=== PATIENT | male | born 1940 | race Two or more races ===

== ENCOUNTER 2018-07-23 22:15 | Inpatient (IN) | payer MEDICARE, MEDICAID ==
--- NOTE | 2018-07-23 22:32 | ED Physician Chart ---
ED Chief Complaint/HPI - Patient Information Date Seen:: 07/23/18 Time Seen:: 22:15 Chief Complaint:: Agitation History of Present Illness:: onset x 3 days of agitation and aggressive behavior; no report of trauma, H/As, S/T, SIs, neck pain, C/P, SOB, Abd. Pain, A/N/V/D/C, fever, chills, or urinary s /s Allergies:: Allergies Allergy/AdvReac Type Severity Reaction Status Date / Time No Known Allergies Allergy Verified 07/23/18 22:20 Historian:: Patient, EMS Review:: Nurse's Note Reviewed, Old Chart Reviewed, EMS run form Reviewed ED Review of Systems - Review of Systems General/Constitutional: No fever, No chills, No weight loss, No weakness, No diaphoresis, No edema, No loss of appetite Skin: No skin lesions, No rash, No bruising Head: No headache, No light-headedness Eyes: No loss of vision, No pain, No diplopia ENT: No earache, No nasal drainage, No sore throat, No tinnitus Neck: No neck pain, No swelling, No thyromegaly, No stiffness, No mass noted Cardio Vascular: No chest pain, No palpitations, No PND, No orthopnea, No edema Pulmonary: No SOB, No cough, No sputum, No wheezing GI: No nausea, No vomiting, No diarrhea, No pain, No melena, No hematochezia, No constipation, No hematemesis G/U: No dysuria, No frequency, No hematuria, No nacturia Storage Facility Housekeeper: No vaginal discharge, No abnormal vaginal bleed, No contraction Musculoskeletal: No bone or joint pain, No back pain, No muscle pain Endocrine: No polyuria, No polydipsia Psychiatric: Prior psych history, Depression, Anxiety, No suicidal ideation, No homicidal ideation, No auditory hallucination, No visual hallucination Hematopoietic: No bruising, No lymphadenopathy Allergic/Immuno: No urticaria, No angioedema Neurological: No syncope, No focal symptoms, No weakness, No paresthesia, No headache, No seizure, No dizziness, Confusion, No vertigo ED Past Medical History - Past Medical History Obtainable: Yes Past Medical History: HTN, Dyslipidemia, Arthritis, Dementia Family History: HTN Social History: Non Smoker, No Alcohol, No Drug Use, Single, Care Facility Surgical History: None Psychiatricy History: Bipolar, Dementia Medication: Reviewed Family Medical History - Family Member Mother History Unknown: Yes ED Physical Exam - Physical Examination General/Constitutional: Awake, Well-developed, well-nourished, Alert, No distress, GCS 15, Non-toxic appearing, Ambulatory Head: Atraumatic Eyes: Lids, conjuctiva normal, PERRL, EOMI Skin: Nl inspection, No rash, No skin lesions, No ecchymosis, Well hydrated, No lymphadenopathy ENMT: External ears, nose nl, TM canals nl, Nasal exam nl, Lips, teeth, gums nl , Oropharynx nl, Tonsils nl Neck: Nontender, Full ROM w/o pain, No JVD, No nuchal rigidity, No bruit, No mass, No stridor Respiratory: Nl effort/Exclusion, Clear to Auscultation, No Wheeze/Rhonchi/Rales Cardio Vascular: RRR, No murmur, gallop, rubs, NL S1 S2, Carotid/Femoral/Distal pulses equal bilaterally GI: No tenderness/rebounding/guarding, No organomegaly, No hernia, Normal BS's, Nondistended, No mass/bruits, No McBurney tenderness : No CVA tenderness Extremities: No tenderness or effusion, Full ROM, normal strength in all extremities, No edema, Normal digits & nails Neuro/Psych: Alert/oriented, DTR's symmetric, Normal sensory exam, Normal motor strength, Judgement/insight normal, Mood normal, Normal gait, No focal deficits Other Neuro/Psych comments:: + Psychomotor Agitation; no SIs; Mood/Affect: Labile Misc: Normal back, No paraspinal tenderness ED Labs/Radiology/EKG Results - Lab Results Comments:: Reviewed - EKG Interpretations EKG Time:: 22:35 Rate & Rhythm: 74; NSR Comments:: non-specific st-t changes ED Septic Shock - . Is Septic Shock (SBP<90, OR Lactate>4 mmol\L) present?: No ED Reassessment (Disposition) - Reassessment Reassessment Condition:: Improved - Diagnosis Diagnosis:: Agitation; Medical Clearance; Dementia; Bipolar Disorder - Aftercare/Follow up Instructions Aftercare/Follow-Up Instructions:: Counseled pt regarding lab results/diagnosis & need follow up, Counseled pt & family regarding lab results/diagnosis & need follow up - Patient Disposition Discharge/Transfer:: Acute Care w/in this hosp Admitted to:: [facility] Condition at Disposition:: Stable, Improved
[2018-07-23 22:48] LABS: % BASOPHILS 0.5 % (0.0-2.0); % EOSINOPHILS 2.5 % (0.0-5.0); % LYMPHOCYTES 29.5 % (20.0-50.0); % MONOCYTES 12.2 % (2.0-10.0); % NEUTROPHILS 55.3 % (40.0-80.0); EOSINOPHILE ABSOLUTE 0.2 Th/cmm (0.1-0.4); HEMATOCRIT 35.8 % (41.0-60); HEMOGLOBIN 12.3 gm/dL (12-16); LYMPHOCYTE ABSOLUTE 1.8 Th/cmm (1.5-3.0); MEAN CELL VOLUME 90.7 fl (80-99); MEAN CORPUSCULAR HEMOGLOBIN 31.2 pg (27.0-31.0); MEAN CORPUSCULAR HGB CONC 34.4 pg (28.0-36.0); MEAN PLATELET VOLUME 6.7 fl; MONOCYTE ABSOLUTE 0.7 Th/cmm (0.3-1.0); NEUTROPHILE ABSOLUTE 3.4 Th/cmm (1.8-8.0); PLATELET COUNT 274 Th/cmm (150-400); RED BLOOD COUNT 3.94 Mil/cmm (3.80-5.80); RED CELL DISTRIBUTION WIDTH 11.7 % (11.5-20.0); WHITE BLOOD COUNT 6.1 Th/cmm (4.8-10.8)
[2018-07-23 23:08] LABS: ACETAMINOPHEN < 10.0 ug/mL (10.0-30.0); ALB/GLOB RATIO 1.2 (1.0-1.8); ALKALINE PHOSPHATASE 117 U/L (34-104); ANION GAP 12.2 (7.0-16.0); BILIRUBIN,TOTAL 0.2 mg/dL (0.3-1.0); BUN - UREA NITROGEN 19 mg/dL (7-25); CALCIUM SERUM 9.2 mg/dL (8.6-10.3); CHLORIDE 100 mEq/L (98-107); CHOLESTEROL 187 mg/dL (<200); CREATININE - SERUM 0.9 mg/dL (0.7-1.3); GLUCOSE 101 mg/dL (70-105); HDL -HIGH DENSITY LIPOPROTEIN 57 mg/dL (23-92); POTASSIUM SERUM 4.2 mEq/L (3.5-5.1); SALICYLATES (ASPIRIN) < 25.0 mg/L (30.0-100.0); SGOT 18 U/L (13-39); SGPT/ALT 11 U/L (7-52); SODIUM SERUM 135 mEq/L (136-145); TOTAL PROTEIN,SERUM 7.4 gm/dL (6.0-8.3); TRIGLYCERIDES 107 mg/dL (<150)
[2018-07-23 23:47] LABS: URINE SOURCE CLEAN C
[2018-07-24 00:06] LABS: AMPHETAMINE URINE NEGATIVE (NEGATIVE); BARBITURATES URINE POSITIVE (NEGATIVE); BENZODIAZEPINES QUAL URINE NEGATIVE (NEGATIVE); CANNABINOID THC NEGATIVE (NEGATIVE); COCAINE METABOLITE QUAL URINE NEGATIVE (NEGATIVE); METHADONE URINE NEGATIVE (NEGATIVE); METHAMPHETAMINES QUAL URINE NEGATIVE (NEGATIVE); OPIATES (MORPHINE) QUAL. URINE NEGATIVE (NEGATIVE); PHENCYCLIDINE (PCP) URINE NEGATIVE (NEGATIVE); TRICYCLICS (TCA) QUAL. URINE NEGATIVE (NEGATIVE)
[2018-07-24 00:32] LABS: URINE CLARITY CLEAR (CLEAR); URINE COLOR YELLOW
[2018-07-24 00:33] LABS: URINE BILIRUBIN NEGATIVE (NEGATIVE); URINE BLOOD NEGATIVE (NEGATIVE); URINE GLUCOSE (UA) NEGATIVE (NEGATIVE); URINE KETONE NEGATIVE (NEGATIVE)
[2018-07-24 00:34] LABS: URINE LEUKOCYTE ESTERASE NEGATIVE (NEGATIVE); URINE MICROSCOPIC INDICATED? YES; URINE NITRATE NEGATIVE (NEGATIVE); URINE PH 6.5 (4.6 - 8.0); URINE PROTEIN NEGATIVE (NEGATIVE); URINE UROBILINOGEN 0.2 E.U./dL (0.2 - 1.0)
[2018-07-24 00:35] LABS: URINE EPITHELIAL CELLS RARE /lpf (FEW); URINE RBC NONE SEEN /hpf (0-5); URINE WBC NONE SEEN /hpf (0-5)
[2018-07-24 01:36] VITALS: BP 131/80
[2018-07-24] MEDS ORDERED: Hydrocodone/APAP 5mg/325mg Tab PO PRN (01:38)
[2018-07-24] MEDS ORDERED: Acetaminophen 500 MG TAB PO PRN (01:38)
[2018-07-24] MEDS ORDERED: Fleet Enema 135 mL RC PRN (01:38)
[2018-07-24] MEDS ORDERED: Magnesium Hydroxide (MOM) 30 mL UDC PO PRN (01:38)
[2018-07-24] MEDS: Pantoprazole 40 mg EC Tab PO SCH (06:30)
[2018-07-24] MEDS ORDERED: Pantoprazole 40 mg EC Tab PO SCH (07:30)
[2018-07-24] MEDS ORDERED: INSULIN ASPART SLIDING SCALE 100 UNITS/ML UNIT SUBQ SCH (07:30)
[2018-07-24 08:04] LABS: CHOLESTEROL 202 mg/dL (<200); HDL -HIGH DENSITY LIPOPROTEIN 59 mg/dL (23-92); TRIGLYCERIDES 103 mg/dL (<150)
[2018-07-24 13:51] LABS: URINE BACTERIA NONE SEEN /hpf (NONE SEEN)
--- NOTE | 2018-07-24 16:49 | Psychiatric Evaluation ---
DATE OF SERVICE: 07/24/2018 IDENTIFYING DATA: The patient is a 78-year-old male, resident of a [facility]. Information obtained directly interviewing the patient as well as reviewing the admission papers and they are reliable. JUSTIFICATION OF HOSPITALIZATION: The patient is admitted here on a voluntary basis in view of his acute agitation and verbally aggressive behavior. CHIEF COMPLAINT: "I don't know why they have to bring me in here." HISTORY OF PRESENT ILLNESS: This is the first psychiatric hospitalization to [facility] for this patient who is reported to have been getting easily agitated and verbally abusive towards the staff members. The patient is stating that he is frustrated for waking up too many times at night time to empty the bladder. The patient is stating that he does not have the call button in here, which is making him to be upset. The patient's sleep is noted to be poor. Appetite is noted to be fair. PAST PSYCHIATRIC HISTORY: The patient denies any prior psychiatric hospitalizations or treatments. MEDICAL HISTORY: Physical examination is requested to be done by Dr. Isaac. SUBSTANCE ABUSE HISTORY: None. LEGAL PROBLEMS: None at this time. 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 STRENGTH AND ASSETS: The patient is motivated. MENTAL STATUS EXAMINATION: The patient is a 78-year-old, looking his stated age, superficially cooperative. Eye contact is noted to be poor. Mood is noted to be irritable. Affect is constricted. Insight and judgment are noted to be still impaired. Impulse control to be poor. The patient is alert and oriented to time and place and person and attention span and concentration are noted to be fair at this time. The patient has short-term memory deficits, but long-term memory seems to be fair. The patient is getting easily frustrated. The patient, however, is not noted to be suicidal or homicidal. DIAGNOSTIC IMPRESSION: AXIS I: Depressive disorder, not otherwise specified. AXIS II: None. AXIS III: As per Dr. Isaac. IMMEDIATE TREATMENT PLAN: The patient is going to be observed on inpatient unit, provided with supportive psychotherapy. The patient is going to be closely monitored. Once stabilized, the patient is going to be discharged to [facility] to be followed up on an outpatient basis. JOB# [id number]
--- NOTE | 2018-07-24 23:50 | History & Physical ---
ADMIT DATE: 07/23/2018 HISTORY OF PRESENT ILLNESS: The patient is a 78-year-old male with long history of diabetes mellitus, benign prostatic hypertrophy, degenerative joint disease, mild dementia. Admitted to [facility] under Dr. Vasquez's service for evaluation and treatment. Apparently, the patient had a fight with one of the residents and the patient was very agitated. No chest pain, no shortness of breath, no nausea, no vomiting. PAST MEDICAL HISTORY: Significant for diabetes mellitus, degenerative joint disease, mild dementia, benign prostatic hypertrophy. PAST SURGICAL HISTORY: No recent surgery. ALLERGIES: None. MEDICATIONS: Follow admission reconciliation. SOCIAL HISTORY: No smoking, alcohol, or drugs. FAMILY HISTORY: Noncontributory. REVIEW OF SYSTEMS: RENAL SYSTEM: No history of chronic renal disorder. CARDIOVASCULAR SYSTEM: No coronary artery disease. ENDOCRINE SYSTEM: Has history of diabetes mellitus. GASTROINTESTINAL SYSTEM: No upper or lower gastrointestinal bleed. NEUROLOGICAL SYSTEM: Seizure disorder. MUSCULOSKELETAL SYSTEM: Has degenerative joint disease. HEMATOLOGICAL SYSTEM: No bleeding tendencies. RESPIRATORY: No asthma. GENITOURINARY: He has benign prostatic hypertrophy. PHYSICAL EXAMINATION: GENERAL: He is awake, alert, mildly confused. VITAL SIGNS: Temperature is 98.6, heart rate 75, and blood pressure 126/65. HEENT: Normocephalic. Pupils reactive to light and accommodation. Sclerae clear. NECK: Supple. Negative for lymphadenopathy, JVD, or bruit. CHEST: Entry of air bilateral normal. No rhonchi or wheezing. HEART: S1, S2 normal. No gallop rhythm. ABDOMEN: Soft, bowel sounds positive. EXTREMITIES: No edema. NEUROLOGIC: He is awake, alert, mildly confused. No focal motor or sensory deficit. Cranial nerves II through XII intact. LABORATORY DATA: White blood 6.1, hemoglobin 12.3, hematocrit 25.8, and platelet 274. Sodium 135, potassium 4.2, BUN is 19, creatinine 0.9, and cholesterol 187. ASSESSMENT: 1. Diabetes mellitus. 2. Benign prostatic hypertrophy. 3. Degenerative joint disease. 4. Dementia. 5. Psychosis. PLAN: The patient admitted to the hospital under Dr. Vasquez's service. Medical problem addressed during this hospitalization is psychosis. Medical problems addressed at discharge are diabetes mellitus, benign prostatic hypertrophy, and degenerative joint disease. The patient is medically stable for activity. Thank you Dr. Vasquez for asking us to see your patient. The patient is a full code. JOB# [id number]
[2018-07-25] MEDS: Pantoprazole 40 mg EC Tab PO SCH (06:39)
[2018-07-25] MEDS: INSULIN ASPART SLIDING SCALE 100 UNITS/ML UNIT SUBQ SCH ×4 (06:44→20:50)
--- NOTE | 2018-07-25 22:27 | Internal Medicine Prog Note ---
Internal Medicine Subjective - Subjective Service Date: 07/25/18 Patient is:: awake, verbal, in bed, talking, confused Per staff patient has:: no adverse event Internal Medicine Objective - Results Result Diagrams: 07/23/18 22:40 07/23/18 22:40 Recent Labs: Laboratory Last Values WBC 6.1 Th/cmm (4.8-10.8) 07/23/18 22:40 RBC 3.94 Mil/cmm (3.80-5.80) 07/23/18 22:40 Hgb 12.3 gm/dL (12-16) 07/23/18 22:40 Hct 35.8 % (41.0-60) L 07/23/18 22:40 MCV 90.7 fl (80-99) 07/23/18 22:40 MCH 31.2 pg (27.0-31.0) H 07/23/18 22:40 MCHC Differential 34.4 pg (28.0-36.0) 07/23/18 22:40 RDW 11.7 % (11.5-20.0) 07/23/18 22:40 Plt Count 274 Th/cmm (150-400) 07/23/18 22:40 MPV 6.7 fl 07/23/18 22:40 Neutrophils % 55.3 % (40.0-80.0) 07/23/18 22:40 Lymphocytes % 29.5 % (20.0-50.0) 07/23/18 22:40 Monocytes % 12.2 % (2.0-10.0) H 07/23/18 22:40 Eosinophils % 2.5 % (0.0-5.0) 07/23/18 22:40 Basophils % 0.5 % (0.0-2.0) 07/23/18 22:40 Sodium 135 mEq/L (136-145) L 07/23/18 22:40 Potassium 4.2 mEq/L (3.5-5.1) 07/23/18 22:40 Chloride 100 mEq/L (98-107) 07/23/18 22:40 Carbon Dioxide 27.0 mEq/L (21.0-31.0) 07/23/18 22:40 Anion Gap 12.2 (7.0-16.0) 07/23/18 22:40 BUN 19 mg/dL (7-25) 07/23/18 22:40 Creatinine 0.9 mg/dL (0.7-1.3) 07/23/18 22:40 Est GFR ( Amer) TNP 07/23/18 22:40 Est GFR (Non-Af Amer) TNP 07/23/18 22:40 BUN/Creatinine Ratio 21.1 07/23/18 22:40 Glucose 101 mg/dL (70-105) 07/23/18 22:40 POC Glucose 101 MG/DL (70 - 105) 07/25/18 19:38 Calcium 9.2 mg/dL (8.6-10.3) 07/23/18 22:40 Total Bilirubin 0.2 mg/dL (0.3-1.0) L 07/23/18 22:40 AST 18 U/L (13-39) 07/23/18 22:40 ALT 11 U/L (7-52) 07/23/18 22:40 Alkaline Phosphatase 117 U/L (34-104) H 07/23/18 22:40 Troponin I 0.01 ng/mL (0.01-0.05) 07/23/18 22:40 Total Protein 7.4 gm/dL (6.0-8.3) 07/23/18 22:40 Albumin 4.0 gm/dL (4.2-5.5) L 07/23/18 22:40 Globulin 3.4 gm/dL 07/23/18 22:40 Albumin/Globulin Ratio 1.2 (1.0-1.8) 07/23/18 22:40 Triglycerides 103 mg/dL (<150) 07/24/18 07:20 Cholesterol 202 mg/dL (<200) H 07/24/18 07:20 LDL Cholesterol Direct 120 mg/dL (75-193) 07/24/18 07:20 HDL Cholesterol 59 mg/dL (23-92) 07/24/18 07:20 TSH 2.83 uIU/ml (0.34-5.60) 07/23/18 22:40 Urine Source CLEAN C 07/23/18 23:41 Urine Color YELLOW 07/23/18 23:41 Urine Clarity CLEAR (CLEAR) 07/23/18 23:41 Urine pH 6.5 (4.6 - 8.0) 07/23/18 23:41 Ur Specific [place] 1.010 (1.005-1.030) 07/23/18 23:41 Urine Protein NEGATIVE mg/dL (NEGATIVE) 07/23/18 23:41 Urine Glucose (UA) NEGATIVE mg/dL (NEGATIVE) 07/23/18 23:41 Urine Clinitest Not Reportable 07/23/18 23:41 Urine Ketones NEGATIVE mg/dL (NEGATIVE) 07/23/18 23:41 Urine Blood NEGATIVE (NEGATIVE) 07/23/18 23:41 Urine Nitrate NEGATIVE (NEGATIVE) 07/23/18 23:41 Urine Bilirubin NEGATIVE (NEGATIVE) 07/23/18 23:41 Urine Urobilinogen 0.2 E.U./dL (0.2 - 1.0) 07/23/18 23:41 Ur Leukocyte Esterase NEGATIVE (NEGATIVE) 07/23/18 23:41 Urine RBC NONE SEEN /hpf (0-5) 07/23/18 23:41 Urine WBC NONE SEEN /hpf (0-5) 07/23/18 23:41 Ur Epithelial Cells RARE /lpf (FEW) 07/23/18 23:41 Urine Bacteria NONE SEEN /hpf (NONE SEEN) 07/23/18 23:41 Salicylates < 25.0 mg/L (30.0-100.0) L 07/23/18 22:40 Urine Opiates Screen NEGATIVE (NEGATIVE) 07/23/18 23:41 Urine Methadone Screen NEGATIVE (NEGATIVE) 07/23/18 23:41 Acetaminophen < 10.0 ug/mL (10.0-30.0) L 07/23/18 22:40 Ur Barbiturates Screen POSITIVE (NEGATIVE) H 07/23/18 23:41 Ur Tricyclics Screen NEGATIVE (NEGATIVE) 07/23/18 23:41 Ur Phencyclidine Scrn NEGATIVE (NEGATIVE) 07/23/18 23:41 Amphetamines Screen NEGATIVE (NEGATIVE) 07/23/18 23:41 U Methamphetamines Scrn NEGATIVE (NEGATIVE) 07/23/18 23:41 U Benzodiazepines Scrn NEGATIVE (NEGATIVE) 07/23/18 23:41 U Cocaine Metab Screen NEGATIVE (NEGATIVE) 07/23/18 23:41 U Cannabinoids Screen NEGATIVE (NEGATIVE) 07/23/18 23:41 Ethyl Alcohol < 10 mg/dL (0-10) 07/23/18 22:40 RPR NONREACTIVE (NONREACTIVE) 07/23/18 22:40 - Physical Exam Vitals and I&O: Vital Signs Temp 97.3 F 07/25/18 20:59 Pulse 85 07/25/18 20:59 Resp 20 07/25/18 20:59 BP 121/60 07/25/18 20:59 Pulse Ox 99 07/25/18 20:59 Intake & Output 07/25/18 07/25/18 07/26/18 06:59 18:59 06:59 Intake Total 120 960 Balance 120 960 Intake: Oral 120 960 Other: # Voids 2 4 # Bowel Movements 1 Active Medications: Current Medications Acetaminophen (Tylenol) 650 mg PO Q6HR PRN PRN Reason: Pain (Mild) Stop: 09/22/18 01:37 Last Admin: 07/24/18 08:32 Dose: 650 mg Acetaminophen/Hydrocodone Bitart ([place] 5mg/325mg) 1 tab PO Q6HR PRN PRN Reason: Pain (Severe) Stop: 09/22/18 01:37 Bisacodyl (Dulcolax 10 Mg Supp) 10 mg RC DAILY PRN PRN Reason: Constipation Stop: 09/22/18 01:37 Docusate Sodium (Colace) 100 mg PO DAILY [facility] Stop: 09/22/18 08:59 Last Admin: 07/25/18 08:42 Dose: 100 mg Donepezil HCl (Aricept) 10 mg PO HS [facility] Stop: 09/22/18 20:59 Last Admin: 07/25/18 20:51 Dose: 10 mg Insulin Aspart (Novolog Insulin Sliding Scale) 0 units SUBQ ACHS [facility]; Protocol Stop: 09/23/18 07:29 Last Admin: 07/25/18 20:50 Dose: Not Given Lorazepam (Ativan) 0.5 mg PO Q4HR PRN; Protocol PRN Reason: Anxiety Stop: 08/23/18 01:22 Magnesium Hydroxide (Milk Of Magnesia) 30 ml PO HS PRN PRN Reason: Constipation Stop: 09/22/18 01:37 Metformin HCl (Glucophage) 500 mg PO BID [facility] Stop: 09/22/18 08:59 Last Admin: 07/25/18 16:14 Dose: 500 mg Pantoprazole Sodium (Protonix) 40 mg PO QDAC [facility] Stop: 09/22/18 07:29 Last Admin: 07/25/18 06:39 Dose: 40 mg Phenytoin (Dilantin) 200 mg PO BID [facility] Stop: 09/22/18 08:59 Last Admin: 07/25/18 16:14 Dose: 200 mg Quetiapine Fumarate (Seroquel) 12.5 mg PO HS [facility]; Protocol Stop: 09/23/18 20:59 Sodium Phosphate (Fleet Enema) 135 ml RC Q48HR PRN PRN Reason: Constipation Stop: 09/22/18 01:37 Tamsulosin HCl (Flomax) 0.4 mg PO HS [facility] Stop: 09/22/18 20:59 Last Admin: 07/25/18 20:51 Dose: 0.4 mg Zolpidem Tartrate (Ambien) 5 mg PO HS PRN PRN Reason: Insomnia General: demented HEENT: NC/AT, PERRLA, EOMI, anicteric sclerae, throat clear Neck: Supple, No JVD, No thyromegaly, +2 carotid pulse wo bruit, No LAD Lungs: CTAB Cardiovascular: RRR, Normal S1, Normal S2, without murmur Abdomen: soft, non-tender, non-distended Extremities: clear Neurological: no change Internal Medicine Assmt/Plan - Assessment Assessment: 1.DM. 2.DJD. 3.BPH. 4.DEMENTIA. - Plan Plan: CONTINUE ON CURRENT MEDICATION AND DIET.
--- NOTE | 2018-07-26 02:56 | Progress Notes ---
DATE: 07/25/2018 PSYCHIATRIC PROGRESS NOTE SUBJECTIVE: Staff was spoken to. The patient is interviewed. Mood is noted to be irritable. Affect is constricted. Insight and judgment at this time are noted to be still impaired. Impulse control seems to be poor. Coping skills are also noted to be poor. The patient is isolative and withdrawn. No side effects to the medications are noted. ASSESSMENT AND PLAN: The patient is still irritable and he is stating that he does not understand the reason for him to be in here. The patient has been getting easily frustrated. The patient has been reporting that he does not have good night sleep. In view of this one and the impulsivity, it is decided to start the patient on a low dose Seroquel tonight and follow the patient with supportive therapy. JOB# [id number]
[2018-07-26] MEDS: INSULIN ASPART SLIDING SCALE 100 UNITS/ML UNIT SUBQ SCH ×4 (06:31→22:03)
[2018-07-26] MEDS: Pantoprazole 40 mg EC Tab PO SCH (06:31)
--- NOTE | 2018-07-26 14:06 | Consultation ---
DATE OF CONSULTATION: 07/25/2018 REFERRING PHYSICIAN: Delmy Morales MD TYPE OF CONSULTATION: Psychology. HISTORY OF PRESENT ILLNESS: The patient is a 78-year-old male. The patient is a resident of [facility]. The patient is known to this development writer from that facility. The following is by record review and by the patient's self-report. The patient is being admitted here due to acute agitation as well as aggressive behavior. The patient was seen by this development writer at his placement. There is an incident report that included the patient was striking out at his roommate and therefore the patient was transferred here. Upon interview, the patient states that he does not know why he is in the hospital. The patient denied striking out at another resident. The staff reports that he has been easily agitated and verbally abusive. The patient denied any suicidal or homicidal ideation, plan or intention at the time of this clinical interview. PAST MEDICAL HISTORY: Please see history and physical by Dr. Isaac. PAST PSYCHIATRIC HISTORY: The patient has no prior hospitalizations. The patient is under the care of a psychiatrist at his placement. There is no previous psychiatric history according to record review. SUBSTANCE ABUSE HISTORY: The patient denied any use of alcohol, tobacco or illicit drugs. PSYCHOSOCIAL HISTORY: The patient did not answer questions about occupational or educational history or pentecostal affiliation. The patient denied any history of physical or sexual abuse. The patient denies any current legal problems. The patient wishes to return to [facility]. The patient states that his son is involved in his care. MENTAL STATUS EXAMINATION: The patient appears to be younger than his stated age. The patient's attitude is guarded. Eye contact is poor. Speech is spontaneous but pressured. Mood is irritable. Affect is constricted. Thought process indicates some perseveration on perceived mistreatment by staff members or by other residents. The patient denied any auditory or visual hallucinations. The patient denies any suicidal ideation, plan or intention. The patient's behavior has been difficult to deescalate. Impulse control is inadequate. Concentration is fair. The patient was able to sustain focus and attention. The patient participated in the memory assessment. He was able to repeat 3 items given to him the first time. The patient was able to recall 2/3 items after several minutes and the third with one hint. Immediate memory and short term memory appeared to be fair. Long-term memory needs further evaluation. The patient did not participate in the interpretation of proverbs. Sensorium is alert and oriented to person and place. Insight is poor. Judgment is compromised. DIAGNOSTIC IMPRESSION: AXIS I: 1. Depressive disorder, not otherwise specified. 2. Impulse control disorder, not otherwise specified. AXIS II: Deferred. AXIS III: Per Dr. Isaac. TREATMENT PLAN: The patient has been seen by Dr. Morales for psychiatric evaluation and for the management of the patient's psychotropic medications. We will provide supportive psychotherapy to include reality orientation and integration. We will provide stress management for the patient to increase his frustration tolerance. We will encourage the patient to be able to demonstrate emotional and self-regulation and to be able to verbalize his concerns versus acting out. We will provide problem solving and solution focused therapy as well. We will provide coping strategies for phase of life issues. We will also provide motivational enhancement for the patient to become compliant and stay compliant with all aspects of his care and treatment and to be able to follow through with staff direction at his facility. Thank you Dr. Morales for this consult and the opportunity to participate in this patient's care. JOB# [id number] [place]
--- NOTE | 2018-07-26 14:51 | General Progress Note ---
Subjective - Review of Systems Service Date: 07/26/18 Subjective: resting comfortably no distress Objective - Results Result Diagrams: 07/23/18 22:40 07/23/18 22:40 Recent Labs: Laboratory Last Values WBC 6.1 Th/cmm (4.8-10.8) 07/23/18 22:40 RBC 3.94 Mil/cmm (3.80-5.80) 07/23/18 22:40 Hgb 12.3 gm/dL (12-16) 07/23/18 22:40 Hct 35.8 % (41.0-60) L 07/23/18 22:40 MCV 90.7 fl (80-99) 07/23/18 22:40 MCH 31.2 pg (27.0-31.0) H 07/23/18 22:40 MCHC Differential 34.4 pg (28.0-36.0) 07/23/18 22:40 RDW 11.7 % (11.5-20.0) 07/23/18 22:40 Plt Count 274 Th/cmm (150-400) 07/23/18 22:40 MPV 6.7 fl 07/23/18 22:40 Neutrophils % 55.3 % (40.0-80.0) 07/23/18 22:40 Lymphocytes % 29.5 % (20.0-50.0) 07/23/18 22:40 Monocytes % 12.2 % (2.0-10.0) H 07/23/18 22:40 Eosinophils % 2.5 % (0.0-5.0) 07/23/18 22:40 Basophils % 0.5 % (0.0-2.0) 07/23/18 22:40 Sodium 135 mEq/L (136-145) L 07/23/18 22:40 Potassium 4.2 mEq/L (3.5-5.1) 07/23/18 22:40 Chloride 100 mEq/L (98-107) 07/23/18 22:40 Carbon Dioxide 27.0 mEq/L (21.0-31.0) 07/23/18 22:40 Anion Gap 12.2 (7.0-16.0) 07/23/18 22:40 BUN 19 mg/dL (7-25) 07/23/18 22:40 Creatinine 0.9 mg/dL (0.7-1.3) 07/23/18 22:40 Est GFR ( Amer) TNP 07/23/18 22:40 Est GFR (Non-Af Amer) TNP 07/23/18 22:40 BUN/Creatinine Ratio 21.1 07/23/18 22:40 Glucose 101 mg/dL (70-105) 07/23/18 22:40 POC Glucose 74 MG/DL (70 - 105) 07/26/18 11:16 Calcium 9.2 mg/dL (8.6-10.3) 07/23/18 22:40 Total Bilirubin 0.2 mg/dL (0.3-1.0) L 07/23/18 22:40 AST 18 U/L (13-39) 07/23/18 22:40 ALT 11 U/L (7-52) 07/23/18 22:40 Alkaline Phosphatase 117 U/L (34-104) H 07/23/18 22:40 Troponin I 0.01 ng/mL (0.01-0.05) 07/23/18 22:40 Total Protein 7.4 gm/dL (6.0-8.3) 07/23/18 22:40 Albumin 4.0 gm/dL (4.2-5.5) L 07/23/18 22:40 Globulin 3.4 gm/dL 07/23/18 22:40 Albumin/Globulin Ratio 1.2 (1.0-1.8) 07/23/18 22:40 Triglycerides 103 mg/dL (<150) 07/24/18 07:20 Cholesterol 202 mg/dL (<200) H 07/24/18 07:20 LDL Cholesterol Direct 120 mg/dL (75-193) 07/24/18 07:20 HDL Cholesterol 59 mg/dL (23-92) 07/24/18 07:20 TSH 2.83 uIU/ml (0.34-5.60) 07/23/18 22:40 Urine Source CLEAN C 07/23/18 23:41 Urine Color YELLOW 07/23/18 23:41 Urine Clarity CLEAR (CLEAR) 07/23/18 23:41 Urine pH 6.5 (4.6 - 8.0) 07/23/18 23:41 Ur Specific [place] 1.010 (1.005-1.030) 07/23/18 23:41 Urine Protein NEGATIVE mg/dL (NEGATIVE) 07/23/18 23:41 Urine Glucose (UA) NEGATIVE mg/dL (NEGATIVE) 07/23/18 23:41 Urine Clinitest Not Reportable 07/23/18 23:41 Urine Ketones NEGATIVE mg/dL (NEGATIVE) 07/23/18 23:41 Urine Blood NEGATIVE (NEGATIVE) 07/23/18 23:41 Urine Nitrate NEGATIVE (NEGATIVE) 07/23/18 23:41 Urine Bilirubin NEGATIVE (NEGATIVE) 07/23/18 23:41 Urine Urobilinogen 0.2 E.U./dL (0.2 - 1.0) 07/23/18 23:41 Ur Leukocyte Esterase NEGATIVE (NEGATIVE) 07/23/18 23:41 Urine RBC NONE SEEN /hpf (0-5) 07/23/18 23:41 Urine WBC NONE SEEN /hpf (0-5) 07/23/18 23:41 Ur Epithelial Cells RARE /lpf (FEW) 07/23/18 23:41 Urine Bacteria NONE SEEN /hpf (NONE SEEN) 07/23/18 23:41 Salicylates < 25.0 mg/L (30.0-100.0) L 07/23/18 22:40 Urine Opiates Screen NEGATIVE (NEGATIVE) 07/23/18 23:41 Urine Methadone Screen NEGATIVE (NEGATIVE) 07/23/18 23:41 Acetaminophen < 10.0 ug/mL (10.0-30.0) L 07/23/18 22:40 Ur Barbiturates Screen POSITIVE (NEGATIVE) H 07/23/18 23:41 Ur Tricyclics Screen NEGATIVE (NEGATIVE) 07/23/18 23:41 Ur Phencyclidine Scrn NEGATIVE (NEGATIVE) 07/23/18 23:41 Amphetamines Screen NEGATIVE (NEGATIVE) 07/23/18 23:41 U Methamphetamines Scrn NEGATIVE (NEGATIVE) 07/23/18 23:41 U Benzodiazepines Scrn NEGATIVE (NEGATIVE) 07/23/18 23:41 U Cocaine Metab Screen NEGATIVE (NEGATIVE) 07/23/18 23:41 U Cannabinoids Screen NEGATIVE (NEGATIVE) 07/23/18 23:41 Ethyl Alcohol < 10 mg/dL (0-10) 07/23/18 22:40 RPR NONREACTIVE (NONREACTIVE) 07/23/18 22:40 - Physical Exam Vitals and I&O: Vital Signs Temp 97.7 F 07/26/18 08:00 Pulse 73 07/26/18 08:00 Resp 18 07/26/18 08:00 BP 132/77 07/26/18 08:00 Pulse Ox 98 07/26/18 08:00 Intake & Output 07/25/18 07/26/18 07/26/18 18:59 06:59 18:59 Intake Total 960 Balance 960 Intake: Oral 960 Other: # Voids 4 # Bowel Movements 1 Stool Characteristics Formed Active Medications: Current Medications Acetaminophen (Tylenol) 650 mg PO Q6HR PRN PRN Reason: Pain (Mild) Stop: 09/22/18 01:37 Last Admin: 07/24/18 08:32 Dose: 650 mg Acetaminophen/Hydrocodone Bitart ([place] 5mg/325mg) 1 tab PO Q6HR PRN PRN Reason: Pain (Severe) Stop: 09/22/18 01:37 Bisacodyl (Dulcolax 10 Mg Supp) 10 mg RC DAILY PRN PRN Reason: Constipation Stop: 09/22/18 01:37 Docusate Sodium (Colace) 100 mg PO DAILY [facility] Stop: 09/22/18 08:59 Last Admin: 07/26/18 08:54 Dose: Not Given Donepezil HCl (Aricept) 10 mg PO HS [facility] Stop: 09/22/18 20:59 Last Admin: 07/25/18 20:51 Dose: 10 mg Insulin Aspart (Novolog Insulin Sliding Scale) 0 units SUBQ ACHS [facility]; Protocol Stop: 09/23/18 07:29 Last Admin: 07/26/18 11:20 Dose: Not Given Lorazepam (Ativan) 0.5 mg PO Q4HR PRN; Protocol PRN Reason: Anxiety Stop: 08/23/18 01:22 Magnesium Hydroxide (Milk Of Magnesia) 30 ml PO HS PRN PRN Reason: Constipation Stop: 09/22/18 01:37 Metformin HCl (Glucophage) 500 mg PO BID [facility] Stop: 09/22/18 08:59 Last Admin: 07/26/18 08:50 Dose: 500 mg Pantoprazole Sodium (Protonix) 40 mg PO QDAC [facility] Stop: 09/22/18 07:29 Last Admin: 07/26/18 06:31 Dose: 40 mg Phenytoin (Dilantin) 200 mg PO BID [facility] Stop: 09/22/18 08:59 Last Admin: 07/26/18 08:50 Dose: 200 mg Quetiapine Fumarate (Seroquel) 12.5 mg PO HS [facility]; Protocol Stop: 09/23/18 20:59 Sodium Phosphate (Fleet Enema) 135 ml RC Q48HR PRN PRN Reason: Constipation Stop: 09/22/18 01:37 Tamsulosin HCl (Flomax) 0.4 mg PO HS [facility] Stop: 09/22/18 20:59 Last Admin: 07/25/18 20:51 Dose: 0.4 mg Zolpidem Tartrate (Ambien) 5 mg PO HS PRN PRN Reason: Insomnia General: Alert, Cooperative HEENT: Atraumatic, PERRLA, EOMI Neck: Supple, JVD, Thyromegaly Cardiovascular: Regular rate, Normal S1, Normal S2 Lungs: Clear to auscultation Abdomen: Bowel sounds, Soft Assessment/Plan - Assessment Assessment: 1.DM. 2.DJD. 3.BPH. 4.DEMENTIA - Plan Plan: continue current treatment Nutritional Asmnt/Malnutr-PDOC - Dietary Evaluation Malnutrition Findings (Please click <Entered> for more info): Nutritional Asmnt/Malnutrition Start: 07/26/18 11: 48 Text: Status: Active Freq: Protocol: Document 07/26/18 11:48 JAS (Rec: 07/26/18 11:59 MMHAROON HAIRSTON- [email or web address]) Nutritional Asmnt/Malnutrition Patient General Information Nutritional Screening Moderate Risk Diagnosis Psychosis Pertinent Medical Hx/Surgical Hx Diabetes, degenerative joint disease, mild dementia, benign prostatic hypertrophy Current Diet Order/ Nutrition Support [facility] / S.O Not Indicated Pertinent Medications Dulcolax, colace, novolog, MOM , Metformin, protonix, dilantin, fleet enema Pertinent Labs (07/23) Na 135, Cholesterol 202 Nutritional Hx/Data Height 1.7 m Height (Calculated Centimeters) 170.2 Current Weight (lbs) 56.699 kg Weight (Calculated Kilograms) 56.7 Weight (Calculated Grams) 06946.0 [place] Body Weight 148 % [place] Body Weight 84 Body Mass Index (BMI) 19.5 Recent Weight Change No Weight Status Approriate GI Symptoms GI Symptoms None Last BM 07/25 x1 Difficult in: None Food Allergies No Cultural/Ethnic/[employer] Belief none indicated Usual diet at home unknown Skin Integrity/Comment: Danyel 20, intact Current %PO Good (75-100%) Estimated Nutritional Goals BEE in Kcals: Adj wt of IBW Calories/Kcals/Kg using IBW 67.2 kg 25-30 kcal/ kg Kcals Calculated ~7866-7700 kcal/day Protein: Adj wt of IBW Protein g/k.8-1 gm/kg using IBW Protein Calculated ~55-65 gm/day Fluid: ml ~9266-7742 ml/day Nutritional Problem 1. Problem Problem No nutrition diagnosis at this time Intervention/Recommendation Comments 1. Continue 60 gm CCHO diet as toelrated by patient. 2. Consider checking HGA1C level to determine the need for CCHO diet as POC glucose have been normal. Expected Outcomes/Goals Expected Outcomes/Goals Oral intake >75% of meals, weight stable, nutrition related labs/glucose WNL, skin intact
--- NOTE | 2018-07-27 00:49 | Progress Notes ---
DATE: 07/26/2018 PSYCHIATRIC PROGRESS NOTE SUBJECTIVE: Staff was spoken to. The patient is interviewed. Mood is noted to be anxious and depressed. Affect is constricted. The patient is isolative and withdrawn. Insight and judgment are noted to be improving. Impulse control seems to be fair. No side effects to the medications are noted. The patient's family came by to visit and they want the patient back at the facility as soon as possible. ASSESSMENT: The patient is still anxious. PLAN: To continue the patient with the supportive therapy and continue current medications and followup. JOB# [id number]
[2018-07-27] MEDS: INSULIN ASPART SLIDING SCALE 100 UNITS/ML UNIT SUBQ SCH ×4 (06:35→20:40)
[2018-07-27] MEDS: Pantoprazole 40 mg EC Tab PO SCH (06:37)
--- NOTE | 2018-07-27 16:36 | General Progress Note ---
Subjective - Review of Systems Service Date: 07/27/18 Subjective: resting comfortably no distress Objective - Results Result Diagrams: 07/23/18 22:40 07/23/18 22:40 Recent Labs: Laboratory Last Values WBC 6.1 Th/cmm (4.8-10.8) 07/23/18 22:40 RBC 3.94 Mil/cmm (3.80-5.80) 07/23/18 22:40 Hgb 12.3 gm/dL (12-16) 07/23/18 22:40 Hct 35.8 % (41.0-60) L 07/23/18 22:40 MCV 90.7 fl (80-99) 07/23/18 22:40 MCH 31.2 pg (27.0-31.0) H 07/23/18 22:40 MCHC Differential 34.4 pg (28.0-36.0) 07/23/18 22:40 RDW 11.7 % (11.5-20.0) 07/23/18 22:40 Plt Count 274 Th/cmm (150-400) 07/23/18 22:40 MPV 6.7 fl 07/23/18 22:40 Neutrophils % 55.3 % (40.0-80.0) 07/23/18 22:40 Lymphocytes % 29.5 % (20.0-50.0) 07/23/18 22:40 Monocytes % 12.2 % (2.0-10.0) H 07/23/18 22:40 Eosinophils % 2.5 % (0.0-5.0) 07/23/18 22:40 Basophils % 0.5 % (0.0-2.0) 07/23/18 22:40 Sodium 135 mEq/L (136-145) L 07/23/18 22:40 Potassium 4.2 mEq/L (3.5-5.1) 07/23/18 22:40 Chloride 100 mEq/L (98-107) 07/23/18 22:40 Carbon Dioxide 27.0 mEq/L (21.0-31.0) 07/23/18 22:40 Anion Gap 12.2 (7.0-16.0) 07/23/18 22:40 BUN 19 mg/dL (7-25) 07/23/18 22:40 Creatinine 0.9 mg/dL (0.7-1.3) 07/23/18 22:40 Est GFR ( Amer) TNP 07/23/18 22:40 Est GFR (Non-Af Amer) TNP 07/23/18 22:40 BUN/Creatinine Ratio 21.1 07/23/18 22:40 Glucose 101 mg/dL (70-105) 07/23/18 22:40 POC Glucose 75 MG/DL (70 - 105) 07/27/18 11:58 Calcium 9.2 mg/dL (8.6-10.3) 07/23/18 22:40 Total Bilirubin 0.2 mg/dL (0.3-1.0) L 07/23/18 22:40 AST 18 U/L (13-39) 07/23/18 22:40 ALT 11 U/L (7-52) 07/23/18 22:40 Alkaline Phosphatase 117 U/L (34-104) H 07/23/18 22:40 Troponin I 0.01 ng/mL (0.01-0.05) 07/23/18 22:40 Total Protein 7.4 gm/dL (6.0-8.3) 07/23/18 22:40 Albumin 4.0 gm/dL (4.2-5.5) L 07/23/18 22:40 Globulin 3.4 gm/dL 07/23/18 22:40 Albumin/Globulin Ratio 1.2 (1.0-1.8) 07/23/18 22:40 Triglycerides 103 mg/dL (<150) 07/24/18 07:20 Cholesterol 202 mg/dL (<200) H 07/24/18 07:20 LDL Cholesterol Direct 120 mg/dL (75-193) 07/24/18 07:20 HDL Cholesterol 59 mg/dL (23-92) 07/24/18 07:20 TSH 2.83 uIU/ml (0.34-5.60) 07/23/18 22:40 Urine Source CLEAN C 07/23/18 23:41 Urine Color YELLOW 07/23/18 23:41 Urine Clarity CLEAR (CLEAR) 07/23/18 23:41 Urine pH 6.5 (4.6 - 8.0) 07/23/18 23:41 Ur Specific [place] 1.010 (1.005-1.030) 07/23/18 23:41 Urine Protein NEGATIVE mg/dL (NEGATIVE) 07/23/18 23:41 Urine Glucose (UA) NEGATIVE mg/dL (NEGATIVE) 07/23/18 23:41 Urine Clinitest Not Reportable 07/23/18 23:41 Urine Ketones NEGATIVE mg/dL (NEGATIVE) 07/23/18 23:41 Urine Blood NEGATIVE (NEGATIVE) 07/23/18 23:41 Urine Nitrate NEGATIVE (NEGATIVE) 07/23/18 23:41 Urine Bilirubin NEGATIVE (NEGATIVE) 07/23/18 23:41 Urine Urobilinogen 0.2 E.U./dL (0.2 - 1.0) 07/23/18 23:41 Ur Leukocyte Esterase NEGATIVE (NEGATIVE) 07/23/18 23:41 Urine RBC NONE SEEN /hpf (0-5) 07/23/18 23:41 Urine WBC NONE SEEN /hpf (0-5) 07/23/18 23:41 Ur Epithelial Cells RARE /lpf (FEW) 07/23/18 23:41 Urine Bacteria NONE SEEN /hpf (NONE SEEN) 07/23/18 23:41 Salicylates < 25.0 mg/L (30.0-100.0) L 07/23/18 22:40 Urine Opiates Screen NEGATIVE (NEGATIVE) 07/23/18 23:41 Urine Methadone Screen NEGATIVE (NEGATIVE) 07/23/18 23:41 Acetaminophen < 10.0 ug/mL (10.0-30.0) L 07/23/18 22:40 Ur Barbiturates Screen POSITIVE (NEGATIVE) H 07/23/18 23:41 Ur Tricyclics Screen NEGATIVE (NEGATIVE) 07/23/18 23:41 Ur Phencyclidine Scrn NEGATIVE (NEGATIVE) 07/23/18 23:41 Amphetamines Screen NEGATIVE (NEGATIVE) 07/23/18 23:41 U Methamphetamines Scrn NEGATIVE (NEGATIVE) 07/23/18 23:41 U Benzodiazepines Scrn NEGATIVE (NEGATIVE) 07/23/18 23:41 U Cocaine Metab Screen NEGATIVE (NEGATIVE) 07/23/18 23:41 U Cannabinoids Screen NEGATIVE (NEGATIVE) 07/23/18 23:41 Ethyl Alcohol < 10 mg/dL (0-10) 07/23/18 22:40 RPR NONREACTIVE (NONREACTIVE) 07/23/18 22:40 - Physical Exam Vitals and I&O: Vital Signs Temp 97.8 F 07/27/18 14:00 Pulse 84 07/27/18 14:00 Resp 20 07/27/18 14:00 BP 134/58 07/27/18 14:00 Pulse Ox 98 07/27/18 14:00 Intake & Output 07/26/18 07/27/18 07/27/18 18:59 06:59 18:59 Intake Total 500 240 Output Total 900 Balance -400 240 Intake: Oral 500 240 Output: Urine 900 Other: # Voids 1 # Bowel Movements 1 Stool Characteristics Formed Active Medications: Current Medications Acetaminophen (Tylenol) 650 mg PO Q6HR PRN PRN Reason: Pain (Mild) Stop: 09/22/18 01:37 Last Admin: 07/24/18 08:32 Dose: 650 mg Acetaminophen/Hydrocodone Bitart ([place] 5mg/325mg) 1 tab PO Q6HR PRN PRN Reason: Pain (Severe) Stop: 09/22/18 01:37 Bisacodyl (Dulcolax 10 Mg Supp) 10 mg RC DAILY PRN PRN Reason: Constipation Stop: 09/22/18 01:37 Docusate Sodium (Colace) 100 mg PO DAILY [facility] Stop: 09/22/18 08:59 Last Admin: 07/27/18 10:00 Dose: 100 mg Donepezil HCl (Aricept) 10 mg PO HS [facility] Stop: 09/22/18 20:59 Last Admin: 07/26/18 22:03 Dose: 10 mg Insulin Aspart (Novolog Insulin Sliding Scale) 0 units SUBQ ACHS [facility]; Protocol Stop: 09/23/18 07:29 Last Admin: 07/27/18 12:10 Dose: Not Given Lorazepam (Ativan) 0.5 mg PO Q4HR PRN; Protocol PRN Reason: Anxiety Stop: 08/23/18 01:22 Last Admin: 07/26/18 23:13 Dose: 0.5 mg Magnesium Hydroxide (Milk Of Magnesia) 30 ml PO HS PRN PRN Reason: Constipation Stop: 09/22/18 01:37 Metformin HCl (Glucophage) 500 mg PO BID [facility] Stop: 09/22/18 08:59 Last Admin: 07/27/18 10:00 Dose: 500 mg Pantoprazole Sodium (Protonix) 40 mg PO QDAC [facility] Stop: 09/22/18 07:29 Last Admin: 07/27/18 06:37 Dose: 40 mg Phenytoin (Dilantin) 200 mg PO BID [facility] Stop: 09/22/18 08:59 Last Admin: 07/27/18 10:00 Dose: 200 mg Quetiapine Fumarate (Seroquel) 12.5 mg PO HS [facility]; Protocol Stop: 09/23/18 20:59 Last Admin: 07/26/18 22:03 Dose: 12.5 mg Sodium Phosphate (Fleet Enema) 135 ml RC Q48HR PRN PRN Reason: Constipation Stop: 09/22/18 01:37 Tamsulosin HCl (Flomax) 0.4 mg PO HS [facility] Stop: 09/22/18 20:59 Last Admin: 07/26/18 22:04 Dose: 0.4 mg Zolpidem Tartrate (Ambien) 5 mg PO HS PRN PRN Reason: Insomnia General: Alert, Cooperative HEENT: Atraumatic, PERRLA, EOMI Neck: Supple, JVD, Thyromegaly Cardiovascular: Regular rate, Normal S1, Normal S2 Lungs: Clear to auscultation Abdomen: Bowel sounds, Soft Assessment/Plan - Assessment Assessment: 1.DM. 2.DJD. 3.BPH. 4.DEMENTIA - Plan Plan: continue current treatment Nutritional Asmnt/Malnutr-PDOC - Dietary Evaluation Malnutrition Findings (Please click <Entered> for more info): Nutritional Asmnt/Malnutrition Start: 07/26/18 11: 48 Text: Status: Complete Freq: Protocol: Document 07/26/18 11:48 JAS (Rec: 07/26/18 11:59 MMHAROON HAIRSTON [email or web address]) Nutritional Asmnt/Malnutrition Patient General Information Nutritional Screening Moderate Risk Diagnosis Psychosis Pertinent Medical Hx/Surgical Hx Diabetes, degenerative joint disease, mild dementia, benign prostatic hypertrophy Subjective Information Patient in activity room at time of visit. Tolerating current diet order with adequate intake. Current Diet Order/ Nutrition Support 60gm CCHO Patient / S.O Not Indicated Pertinent Medications Dulcolax, colace, novolog, MOM , Metformin, protonix, dilantin, fleet enema Pertinent Labs (07/23) Na 135, Cholesterol 202 Nutritional Hx/Data Height 1.7 m Height (Calculated Centimeters) 170.2 Current Weight (lbs) 56.699 kg Weight (Calculated Kilograms) 56.7 Weight (Calculated Grams) 15571.0 [place] Body Weight 148 % [place] Body Weight 84 Body Mass Index (BMI) 19.5 Recent Weight Change No Weight Status Approriate GI Symptoms GI Symptoms None Last BM 07/25 x1 Difficult in: None Food Allergies No Cultural/Ethnic/[employer] Belief none indicated Usual diet at home unknown Skin Integrity/Comment: Danyel 20, intact Current %PO Good (75-100%) Estimated Nutritional Goals BEE in Kcals: Adj wt of IBW Calories/Kcals/Kg using IBW 67.2 kg 25-30 kcal/ kg Kcals Calculated ~3284-9538 kcal/day Protein: Adj wt of IBW Protein g/k.8-1 gm/kg using IBW Protein Calculated ~55-65 gm/day Fluid: ml ~5178-9604 ml/day Nutritional Problem 1. Problem Problem No nutrition diagnosis at this time Intervention/Recommendation Comments 1. Continue 60 gm CCHO diet as toelrated by patient. 2. Consider checking HGA1C level to determine the need for CCHO diet as POC glucose have been normal. F/U in 7 days LR 08/02 Expected Outcomes/Goals Expected Outcomes/Goals Oral intake >75% of meals, weight stable, nutrition related labs/glucose WNL, skin intact
--- NOTE | 2018-07-28 04:08 | Progress Notes ---
DATE: 07/27/2018 SUBJECTIVE: Staff was spoken to. The patient is interviewed. Mood is noted to be irritable. Affect is constricted. The patient is stating that there is nothing wrong with him. He needs to get back to the facility. Coping skills at this time are noted to be still impaired. PLAN: The patient, however, is not willing to participate in any of the groups. ASSESSMENT: The patient is still irritable, but impulsivity is being closely monitored. PLAN: To continue the patient with the supportive therapy and encourage the patient to place the consults rather than to act out. JOB# [id number]
[2018-07-28] MEDS: INSULIN ASPART SLIDING SCALE 100 UNITS/ML UNIT SUBQ SCH ×4 (06:36→21:10)
[2018-07-28] MEDS: Pantoprazole 40 mg EC Tab PO SCH (06:37)
--- NOTE | 2018-07-28 20:29 | Internal Medicine Prog Note ---
Internal Medicine Subjective - Subjective Service Date: 07/28/18 Patient seen and examined:: with staff Patient is:: awake, verbal, in bed, talking, confused Per staff patient has:: no adverse event Internal Medicine Objective - Results Result Diagrams: 07/23/18 22:40 07/23/18 22:40 Recent Labs: Laboratory Last Values WBC 6.1 Th/cmm (4.8-10.8) 07/23/18 22:40 RBC 3.94 Mil/cmm (3.80-5.80) 07/23/18 22:40 Hgb 12.3 gm/dL (12-16) 07/23/18 22:40 Hct 35.8 % (41.0-60) L 07/23/18 22:40 MCV 90.7 fl (80-99) 07/23/18 22:40 MCH 31.2 pg (27.0-31.0) H 07/23/18 22:40 MCHC Differential 34.4 pg (28.0-36.0) 07/23/18 22:40 RDW 11.7 % (11.5-20.0) 07/23/18 22:40 Plt Count 274 Th/cmm (150-400) 07/23/18 22:40 MPV 6.7 fl 07/23/18 22:40 Neutrophils % 55.3 % (40.0-80.0) 07/23/18 22:40 Lymphocytes % 29.5 % (20.0-50.0) 07/23/18 22:40 Monocytes % 12.2 % (2.0-10.0) H 07/23/18 22:40 Eosinophils % 2.5 % (0.0-5.0) 07/23/18 22:40 Basophils % 0.5 % (0.0-2.0) 07/23/18 22:40 Sodium 135 mEq/L (136-145) L 07/23/18 22:40 Potassium 4.2 mEq/L (3.5-5.1) 07/23/18 22:40 Chloride 100 mEq/L (98-107) 07/23/18 22:40 Carbon Dioxide 27.0 mEq/L (21.0-31.0) 07/23/18 22:40 Anion Gap 12.2 (7.0-16.0) 07/23/18 22:40 BUN 19 mg/dL (7-25) 07/23/18 22:40 Creatinine 0.9 mg/dL (0.7-1.3) 07/23/18 22:40 Est GFR ( Amer) TNP 07/23/18 22:40 Est GFR (Non-Af Amer) TNP 07/23/18 22:40 BUN/Creatinine Ratio 21.1 07/23/18 22:40 Glucose 101 mg/dL (70-105) 07/23/18 22:40 POC Glucose 78 MG/DL (70 - 105) 07/28/18 06:29 Calcium 9.2 mg/dL (8.6-10.3) 07/23/18 22:40 Total Bilirubin 0.2 mg/dL (0.3-1.0) L 07/23/18 22:40 AST 18 U/L (13-39) 07/23/18 22:40 ALT 11 U/L (7-52) 07/23/18 22:40 Alkaline Phosphatase 117 U/L (34-104) H 07/23/18 22:40 Troponin I 0.01 ng/mL (0.01-0.05) 07/23/18 22:40 Total Protein 7.4 gm/dL (6.0-8.3) 07/23/18 22:40 Albumin 4.0 gm/dL (4.2-5.5) L 07/23/18 22:40 Globulin 3.4 gm/dL 07/23/18 22:40 Albumin/Globulin Ratio 1.2 (1.0-1.8) 07/23/18 22:40 Triglycerides 103 mg/dL (<150) 07/24/18 07:20 Cholesterol 202 mg/dL (<200) H 07/24/18 07:20 LDL Cholesterol Direct 120 mg/dL (75-193) 07/24/18 07:20 HDL Cholesterol 59 mg/dL (23-92) 07/24/18 07:20 TSH 2.83 uIU/ml (0.34-5.60) 07/23/18 22:40 Urine Source CLEAN C 07/23/18 23:41 Urine Color YELLOW 07/23/18 23:41 Urine Clarity CLEAR (CLEAR) 07/23/18 23:41 Urine pH 6.5 (4.6 - 8.0) 07/23/18 23:41 Ur Specific [place] 1.010 (1.005-1.030) 07/23/18 23:41 Urine Protein NEGATIVE mg/dL (NEGATIVE) 07/23/18 23:41 Urine Glucose (UA) NEGATIVE mg/dL (NEGATIVE) 07/23/18 23:41 Urine Clinitest Not Reportable 07/23/18 23:41 Urine Ketones NEGATIVE mg/dL (NEGATIVE) 07/23/18 23:41 Urine Blood NEGATIVE (NEGATIVE) 07/23/18 23:41 Urine Nitrate NEGATIVE (NEGATIVE) 07/23/18 23:41 Urine Bilirubin NEGATIVE (NEGATIVE) 07/23/18 23:41 Urine Urobilinogen 0.2 E.U./dL (0.2 - 1.0) 07/23/18 23:41 Ur Leukocyte Esterase NEGATIVE (NEGATIVE) 07/23/18 23:41 Urine RBC NONE SEEN /hpf (0-5) 07/23/18 23:41 Urine WBC NONE SEEN /hpf (0-5) 07/23/18 23:41 Ur Epithelial Cells RARE /lpf (FEW) 07/23/18 23:41 Urine Bacteria NONE SEEN /hpf (NONE SEEN) 07/23/18 23:41 Salicylates < 25.0 mg/L (30.0-100.0) L 07/23/18 22:40 Urine Opiates Screen NEGATIVE (NEGATIVE) 07/23/18 23:41 Urine Methadone Screen NEGATIVE (NEGATIVE) 07/23/18 23:41 Acetaminophen < 10.0 ug/mL (10.0-30.0) L 07/23/18 22:40 Ur Barbiturates Screen POSITIVE (NEGATIVE) H 07/23/18 23:41 Ur Tricyclics Screen NEGATIVE (NEGATIVE) 07/23/18 23:41 Ur Phencyclidine Scrn NEGATIVE (NEGATIVE) 07/23/18 23:41 Amphetamines Screen NEGATIVE (NEGATIVE) 07/23/18 23:41 U Methamphetamines Scrn NEGATIVE (NEGATIVE) 07/23/18 23:41 U Benzodiazepines Scrn NEGATIVE (NEGATIVE) 07/23/18 23:41 U Cocaine Metab Screen NEGATIVE (NEGATIVE) 07/23/18 23:41 U Cannabinoids Screen NEGATIVE (NEGATIVE) 07/23/18 23:41 Ethyl Alcohol < 10 mg/dL (0-10) 07/23/18 22:40 RPR NONREACTIVE (NONREACTIVE) 07/23/18 22:40 - Physical Exam Vitals and I&O: Vital Signs Temp 97.8 F 07/28/18 20:26 Pulse 91 07/28/18 20:26 Resp 20 07/28/18 20:26 BP 93/64 07/28/18 20:26 Pulse Ox 98 07/28/18 20:26 Intake & Output 07/28/18 07/28/18 07/29/18 06:59 18:59 06:59 Intake Total 240 180 Balance 240 180 Weight (lbs) 56.699 kg Intake: Oral 240 180 Other: # Voids 3 2 # Bowel Movements 0 1 0 Weight Source Bedscale Active Medications: Current Medications Acetaminophen (Tylenol) 650 mg PO Q6HR PRN PRN Reason: Pain (Mild) Stop: 09/22/18 01:37 Last Admin: 07/24/18 08:32 Dose: 650 mg Acetaminophen/Hydrocodone Bitart ([place] 5mg/325mg) 1 tab PO Q6HR PRN PRN Reason: Pain (Severe) Stop: 09/22/18 01:37 Bisacodyl (Dulcolax 10 Mg Supp) 10 mg RC DAILY PRN PRN Reason: Constipation Stop: 09/22/18 01:37 Docusate Sodium (Colace) 100 mg PO DAILY [facility] Stop: 09/22/18 08:59 Last Admin: 07/28/18 09:04 Dose: 100 mg Donepezil HCl (Aricept) 10 mg PO HS [facility] Stop: 09/22/18 20:59 Last Admin: 07/27/18 20:40 Dose: 10 mg Insulin Aspart (Novolog Insulin Sliding Scale) 0 units SUBQ ACHS [facility]; Protocol Stop: 09/23/18 07:29 Last Admin: 07/28/18 16:59 Dose: Not Given Lorazepam (Ativan) 0.5 mg PO Q4HR PRN; Protocol PRN Reason: Anxiety Stop: 08/23/18 01:22 Last Admin: 07/26/18 23:13 Dose: 0.5 mg Magnesium Hydroxide (Milk Of Magnesia) 30 ml PO HS PRN PRN Reason: Constipation Stop: 09/22/18 01:37 Metformin HCl (Glucophage) 500 mg PO BID [facility] Stop: 09/22/18 08:59 Last Admin: 07/28/18 17:17 Dose: 500 mg Pantoprazole Sodium (Protonix) 40 mg PO QDAC [facility] Stop: 09/22/18 07:29 Last Admin: 07/28/18 06:37 Dose: 40 mg Phenytoin (Dilantin) 200 mg PO BID [facility] Stop: 09/22/18 08:59 Last Admin: 07/28/18 17:17 Dose: 200 mg Quetiapine Fumarate (Seroquel) 12.5 mg PO HS [facility]; Protocol Stop: 09/23/18 20:59 Last Admin: 07/27/18 20:39 Dose: 12.5 mg Sodium Phosphate (Fleet Enema) 135 ml RC Q48HR PRN PRN Reason: Constipation Stop: 09/22/18 01:37 Tamsulosin HCl (Flomax) 0.4 mg PO HS [facility] Stop: 09/22/18 20:59 Last Admin: 07/27/18 20:40 Dose: 0.4 mg Zolpidem Tartrate (Ambien) 5 mg PO HS PRN PRN Reason: Insomnia General: demented HEENT: NC/AT, PERRLA, EOMI, anicteric sclerae, throat clear Neck: Supple, No JVD, No thyromegaly, +2 carotid pulse wo bruit, No LAD Lungs: CTAB Cardiovascular: RRR, Normal S1, Normal S2, without murmur Abdomen: soft, non-tender, non-distended Extremities: clear Neurological: no change Internal Medicine Assmt/Plan - Assessment Assessment: 1.DM. 2.DJD. 3.BPH. 4.DEMENTIA. - Plan Plan: CONTINUE ON CURRENT MEDICATION AND DIET. Nutritional Asmnt/Malnutr-PDOC - Dietary Evaluation Malnutrition Findings (Please click <Entered> for more info): Nutritional Asmnt/Malnutrition Start: 07/26/18 11: 48 Text: Status: Complete Freq: Protocol: Document 07/26/18 11:48 JAS (Rec: 07/26/18 11:59 JAS HAIRSTON- [id number]) Nutritional Asmnt/Malnutrition Patient General Information Nutritional Screening Moderate Risk Diagnosis Psychosis Pertinent Medical Hx/Surgical Hx Diabetes, degenerative joint disease, mild dementia, benign prostatic hypertrophy Subjective Information Patient in activity room at time of visit. Tolerating current diet order with adequate intake. Current Diet Order/ Nutrition Support 60gm CCHO Patient / S.O Not Indicated Pertinent Medications Dulcolax, colace, novolog, MOM , Metformin, protonix, dilantin, fleet enema Pertinent Labs (07/23) Na 135, Cholesterol 202 Nutritional Hx/Data Height 1.7 m Height (Calculated Centimeters) 170.2 Current Weight (lbs) 56.699 kg Weight (Calculated Kilograms) 56.7 Weight (Calculated Grams) 70200.0 [place] Body Weight 148 % [place] Body Weight 84 Body Mass Index (BMI) 19.5 Recent Weight Change No Weight Status Approriate GI Symptoms GI Symptoms None Last BM 07/25 x1 Difficult in: None Food Allergies No Cultural/Ethnic/Jew Belief none indicated Usual diet at home unknown Skin Integrity/Comment: Danyel 20, intact Current %PO Good (75-100%) Estimated Nutritional Goals BEE in Kcals: Adj wt of IBW Calories/Kcals/Kg using IBW 67.2 kg 25-30 kcal/ kg Kcals Calculated ~4363-3477 kcal/day Protein: Adj wt of IBW Protein g/k.8-1 gm/kg using IBW Protein Calculated ~55-65 gm/day Fluid: ml ~7806-6906 ml/day Nutritional Problem 1. Problem Problem No nutrition diagnosis at this time Intervention/Recommendation Comments 1. Continue 60 gm CCHO diet as toelrated by patient. 2. Consider checking HGA1C level to determine the need for CCHO diet as POC glucose have been normal. F/U in 7 days LR 08/02 Expected Outcomes/Goals Expected Outcomes/Goals Oral intake >75% of meals, weight stable, nutrition related labs/glucose WNL, skin intact
--- NOTE | 2018-07-29 02:32 | Progress Notes ---
DATE: 07/28/2018 SUBJECTIVE: Staff was spoken to. The patient is interviewed. Mood is noted to be irritable. Affect is constricted. The patient is stating that he has been having difficult time to sleep in here. He does not like the food. He wants to go back to [facility]. The patient's family has visited the patient and they want the patient back at [facility] and hence it is decided to inform to the staff that the patient is going to be discharged back to the [facility] tomorrow. JOB# [id number]
[2018-07-29] MEDS: Pantoprazole 40 mg EC Tab PO SCH (06:53)
[2018-07-29] MEDS: INSULIN ASPART SLIDING SCALE 100 UNITS/ML UNIT SUBQ SCH ×2 (06:53→15:06)
--- NOTE | 2018-07-29 14:20 | Progress Notes ---
DATE: 07/29/2018 IDENTIFYING DATA: The patient is a 78-year-old male, resident of a [facility]. JUSTIFICATION OF HOSPITALIZATION: The patient is admitted because of his agitation and verbally aggressive behavior. CHIEF COMPLAINT: "I don't know why they have to bring me in here." HISTORY OF PRESENT ILLNESS: Please refer to 07/24/2018 dictation done by me. HOSPITAL COURSE AND RESPONSE TO TREATMENT: The patient had physical examination done by Dr. Isaac and the patient has been closely monitored. I encouraged to verbalize the concerns rather than to act out and the patient has been initially placed on the low dose of the Seroquel 12.5 mg and the patient has been closely monitored and his blood sugar has been closely monitored. The patient has been treated for diabetes mellitus, degenerative joint disease, and benign prostatic hypertrophy. The patient started to do fairly well. No major behavioral problems are noted and blood work done at the time of the hospitalization indicated glucose is noted to be 110 on 07/28/2018 before it was running around 67-97, but on 07/29/2018 the blood glucose us noted to be 81. The patient has been doing fairly well and hence it is decided to discharge the patient today for followup on outpatient basis at [facility]. DIAGNOSES AT THE TIME OF DISCHARGE: AXIS I: Dementia and behavioral change, secondary trait. AXIS II: None. AXIS III: Diabetes mellitus and degenerative joint disease. AFTERCARE PLAN: The patient is discharged to [facility] to be followed up on an outpatient basis. PROGNOSIS: At the time of discharge are noted to be fair with the treatment. JOB# [id number]
== END 2018-07-29 15:45 | DRG 884 ==
LOC: ER 22:15 → GERO 23:45
DX: F03.91 Unspecified dementia, unspecified severity, with behavioral disturbance (principal); I10 Essential (primary) hypertension; E78.5 Hyperlipidemia, unspecified; M19.90 Unspecified osteoarthritis, unspecified site; F31.9 Bipolar disorder, unspecified; E11.9 Type 2 diabetes mellitus without complications; N40.0 Benign prostatic hyperplasia without lower urinary tract symptoms; F63.9 Impulse disorder, unspecified; F29 Unspecified psychosis not due to a substance or known physiological condition; Z82.49 Family history of ischemic heart disease and other diseases of the circulatory system
CPT/HCPCS: 36415-UA; 80053-TC; 80061-TC; 80307; 80320-TC; 80329-TC; 81001-TC; 81003-TC; 82948-90; 83036-90; 84443-TC; 84484-TC; 85025-TC; 86592-TC; 93005; J1815; Z7610

== ENCOUNTER 2019-06-08 18:22 | Inpatient (IN) | payer MEDICARE, MEDICAID ==
[2019-06-09] MEDS ORDERED: Magnesium Hydroxide (MOM) 30 mL UDC PO PRN (03:53)
[2019-06-09 03:54] VITALS: BP 118/70
[2019-06-09] MEDS: Multivitamin Tab PO SCH (09:48)
[2019-06-09] MEDS: Hydrocodone/APAP 5mg/325mg Tab PO PRN ×3 (09:57→21:07)
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
[2019-06-09] MEDS ORDERED: Dextrose 50% 50 mL Abboject IVP PRN (12:55)
[2019-06-09] MEDS ORDERED: GLUCAGON HCl 1 MG KIT IM PRN (12:55)
[2019-06-09] MEDS: INSULIN LISPRO SLIDING SCALE 100 UNITS/ML UNIT SUBQ SCH ×2 (16:46→20:33)
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
--- NOTE | 2019-06-09 23:37 | Consultation ---
DATE OF CONSULTATION: 06/09/2019 REASON FOR CONSULTATION: Medical management and clearance. The patient admitted to inpatient unit. HISTORY OF PRESENT ILLNESS: This is a 79-year-old male with history of diabetes, seizure, GERD, BPH, arthritis, anemia, admitted under the service of Dr. Underwood. The patient was seen initially at [facility] with left eye laceration ____. CT of the head was negative. The patient denies chest pain, shortness of breath. PAST MEDICAL HISTORY: As mentioned in history of present illness. PAST SURGICAL HISTORY: Denies surgeries and surgeries in the past. ALLERGIES: No known drug allergies. MEDICATIONS: Tylenol, Dulcolax, Colace, Zolpidem, insulin sliding scale, lorazepam, magnesium, metformin, pantoprazole, Dilantin, tamsulosin. FAMILY HISTORY: Noncontributory. SOCIAL HISTORY: The patient is a prison patient. He used to smoke and drink socially. No intravenous drug use. 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 REVIEW OF SYSTEMS: GENERAL: Complains of not feeling well. Denies any constitutional symptoms. HEENT: No blurred vision or pain. LUNGS: No diagnosis of COPD or asthma. HEART: The patient with hypertension, diabetes. ABDOMEN: No nausea, vomiting, or pain. GENITOURINARY: The patient denies increased dysuria. The patient diagnosed with UTI. NEUROLOGIC: History of seizure. CT done of the head was negative. PSYCHIATRIC: As stated above. PHYSICAL EXAMINATION: VITAL SIGNS: Blood pressure 180/73, respirations 16, pulse 76, temperature 98.5. GENERAL: Elderly male, appears younger than 79. NECK: Supple. No mass. HEENT: Positive superficial laceration above the left eye, ____. LUNGS: Equal breath sounds, otherwise clear to auscultation. HEART: Regular rate and rhythm without appreciable murmur. ABDOMEN: Soft, globular. EXTREMITIES: Positive excoriation atrophy contractures. NEUROLOGY: Limited. ASSESSMENT AND PLAN: Left eye laceration, UTI, diabetes, seizure, GERD, BPH, anemia, osteoarthritis. Continue the patient ADA diet and insulin sliding scale. Continue nitrofurantoin. Continue antiepileptic medication, continue proton pump inhibitor. Monitor hemoglobin and hematocrit. Labs were noted. Psychiatry to manage the patient for psych issues. JOB# [id number]
[2019-06-10] MEDS: Hydrocodone/APAP 5mg/325mg Tab PO PRN ×2 (06:37→19:38)
[2019-06-10] MEDS: INSULIN LISPRO SLIDING SCALE 100 UNITS/ML UNIT SUBQ SCH ×4 (06:44→20:35)
[2019-06-10] MEDS: Multivitamin Tab PO SCH (09:20)
--- NOTE | 2019-06-10 20:26 | General Progress Note ---
Subjective - Review of Systems Service Date: 06/10/19 Subjective: RESTING COMFORTABLY NO DISTRESS Objective - Physical Exam Vitals and I&O: Vital Signs Temp 97.2 F 06/10/19 14:00 Pulse 78 06/10/19 14:00 Resp 18 06/10/19 14:00 BP 122/57 06/10/19 14:00 Pulse Ox 97 06/10/19 14:00 Intake & Output 06/10/19 06/10/19 06/11/19 06:59 18:59 06:59 Intake Total 180 800 Balance 180 800 Intake: Oral 180 800 Other: # Voids 3 3 # Bowel Movements 0 1 Active Medications: Current Medications Acetaminophen (Tylenol) 650 mg PO Q4HR PRN PRN Reason: Mild Pain / Temp above 100 Stop: 08/08/19 03:52 Last Admin: 06/10/19 19:38 Dose: 650 mg Acetaminophen/Hydrocodone Bitart ([place]ol[place] 5mg/325mg) 1 tab PO Q6HR PRN PRN Reason: Pain (Severe) Stop: 08/08/19 08:05 Last Admin: 06/10/19 19:38 Dose: 1 tab Al Hydrox/Mg Hydrox/Simethicone (Maalox) 30 ml PO Q4HR PRN PRN Reason: GI DISTRESS Stop: 08/08/19 03:52 Dextrose (Glutose 40%) 18.75 gm PO PRN PRN PRN Reason: BS below 70 & tolerate po Stop: 08/08/19 12:54 Docusate Sodium (Colace) 100 mg PO DAILY [facility] Stop: 08/08/19 08:59 Last Admin: 06/10/19 09:20 Dose: 100 mg Donepezil HCl (Aricept) 10 mg PO HS [facility] Stop: 08/08/19 20:59 Last Admin: 06/09/19 20:33 Dose: 10 mg Glucagon (Glucagen) 1 mg IM PRN PRN PRN Reason: BS Below 70 & not tolerate po Stop: 08/08/19 12:54 Insulin Human Lispro (Humalog Insulin Sliding Scale) 0 units SUBQ ACHS [facility]; Protocol Stop: 08/08/19 16:29 Last Admin: 06/10/19 16:35 Dose: Not Given Levetiracetam (Keppra) 500 mg PO BID [facility] Stop: 08/08/19 08:59 Last Admin: 06/10/19 16:34 Dose: 500 mg Lorazepam (Ativan) 0.5 mg PO Q4HR PRN; Protocol PRN Reason: anxiety/agitation Stop: 07/09/19 03:52 Magnesium Hydroxide (Milk Of Magnesia) 30 ml PO HS PRN PRN Reason: Constipation Metformin HCl (Glucophage) 500 mg PO BID [facility] Stop: 08/08/19 08:59 Last Admin: 06/10/19 16:34 Dose: 500 mg Multivitamins/Vitamin C (Theragran) 1 tab PO DAILY [facility] Stop: 08/08/19 08:59 Last Admin: 06/10/19 09:20 Dose: 1 tab Nitrofurantoin Macrocrystals (Macrobid) 100 mg PO BID [facility]; Protocol Stop: 06/14/19 18:00 Last Admin: 06/10/19 16:34 Dose: 100 mg Pantoprazole Sodium (Protonix) 40 mg PO QAM [facility] Stop: 08/10/19 07:29 Quetiapine Fumarate (Seroquel) 25 mg PO TID [facility]; Protocol Stop: 08/08/19 09:59 Last Admin: 06/10/19 14:04 Dose: 25 mg Tamsulosin HCl (Flomax) 0.4 mg PO DAILY [facility] Stop: 08/08/19 08:59 Last Admin: 06/10/19 09:20 Dose: 0.4 mg General: No acute distress HEENT: Atraumatic, PERRLA Neck: Supple, JVD Cardiovascular: Regular rate, Normal S1, Normal S2 Lungs: Clear to auscultation Abdomen: Bowel sounds, Soft Assessment/Plan - Assessment Assessment: DM BROW LACERATION SEIZURE DISORDER - Plan Plan: CONTINUE CURRENT TREATMENT
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
[2019-06-11] MEDS: Pantoprazole 40 mg EC Tab PO SCH ×2 (06:50→10:18)
[2019-06-11] MEDS: INSULIN LISPRO SLIDING SCALE 100 UNITS/ML UNIT SUBQ SCH ×4 (06:51→20:22)
[2019-06-11] MEDS: Hydrocodone/APAP 5mg/325mg Tab PO PRN ×3 (07:03→20:59)
[2019-06-11] MEDS: Multivitamin Tab PO SCH (10:19)
[2019-06-11] MEDS: Maalox 30 mL Cup PO PRN (14:12)
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
[2019-06-12] MEDS: INSULIN LISPRO SLIDING SCALE 100 UNITS/ML UNIT SUBQ SCH ×4 (06:36→20:15)
[2019-06-12] MEDS: Pantoprazole 40 mg EC Tab PO SCH (06:37)
[2019-06-12] MEDS: Multivitamin Tab PO SCH (10:16)
[2019-06-12] MEDS: Hydrocodone/APAP 5mg/325mg Tab PO PRN ×2 (10:16→17:09)
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
--- NOTE | 2019-06-12 17:28 | Progress Notes ---
DATE: 06/12/2019 SUBJECTIVE: The patient in the hospital, refusing to talk to me this morning, difficult to interview, does not want to engage, wakes up, opens his eyes and looks at me and then goes back to sleep, easily agitated, requiring a lot of redirection, withdrawn, mostly keeps to self, concerns that he may act out upon his impulses, perhaps strike out. Needing a high level of prompting and redirection. Medications were reviewed. Vitals were noted. Once again difficult to assess fully. The patient is not engaging. We will continue to monitor on an inpatient basis. JOB# [id number]
[2019-06-13] MEDS: Hydrocodone/APAP 5mg/325mg Tab PO PRN (05:29)
[2019-06-13] MEDS: Pantoprazole 40 mg EC Tab PO SCH (06:50)
[2019-06-13] MEDS: INSULIN LISPRO SLIDING SCALE 100 UNITS/ML UNIT SUBQ SCH ×4 (06:58→20:53)
[2019-06-13] MEDS: Multivitamin Tab PO SCH (08:55)
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
[2019-06-14] MEDS: INSULIN LISPRO SLIDING SCALE 100 UNITS/ML UNIT SUBQ SCH ×4 (06:54→20:50)
[2019-06-14] MEDS: Pantoprazole 40 mg EC Tab PO SCH (06:55)
[2019-06-14] MEDS: Multivitamin Tab PO SCH (08:34)
[2019-06-14] MEDS: Hydrocodone/APAP 5mg/325mg Tab PO PRN ×2 (08:48→20:52)
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
--- NOTE | 2019-06-14 19:18 | Progress Notes ---
DATE: 06/14/2019 SUBJECTIVE: The patient was seen and evaluated. The patient's chart reviewed. Covering for Dr. Underwood. Today on [id number] evaluation, easily anger, irritable upon approach, minimizing disengaged, difficult to maintain simple conversation. MENTAL STATUS EXAMINATION: Disorganized, withdrawn, impulsive. ASSESSMENT AND PLAN: Dementia, comorbid psychotic behavior. We will continue monitoring and evaluating and continue with the current medication regimen, which includes Aricept 10 mg a day, glucagon, Keppra, Namenda and Seroquel 25 t.i.d. The patient is not experiencing any side effects to the medications. [facility]# [id number]
[2019-06-14] MEDS: Maalox 30 mL Cup PO PRN (22:19)
[2019-06-15] MEDS: INSULIN LISPRO SLIDING SCALE 100 UNITS/ML UNIT SUBQ SCH ×4 (06:37→21:21)
[2019-06-15] MEDS: Pantoprazole 40 mg EC Tab PO SCH (06:38)
[2019-06-15] MEDS: Hydrocodone/APAP 5mg/325mg Tab PO PRN ×3 (06:39→23:29)
[2019-06-15] MEDS: Multivitamin Tab PO SCH (08:26)
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
--- NOTE | 2019-06-16 02:31 | Progress Notes ---
DATE: 06/15/2019 SUBJECTIVE: A 79-year-old male with history of dementia. On [id number], the patient remains pretty confused, disoriented, not really talking much, still angry, irritable, not really even answering any of my questions. He remains fairly impulsive, unpredictable ____ here, still irritable, angry, limited interview. Noted to be confused, forgetful, guarded, suspicious, demanding at times, labile. Medications were reviewed including dosages, frequencies. PLAN: We will continue to monitor. We will continue dosing of Seroquel. Ongoing safety concerns. [facility]# [id number]
[2019-06-16] MEDS: INSULIN LISPRO SLIDING SCALE 100 UNITS/ML UNIT SUBQ SCH ×4 (06:44→21:09)
[2019-06-16] MEDS: Pantoprazole 40 mg EC Tab PO SCH (06:44)
[2019-06-16] MEDS: Hydrocodone/APAP 5mg/325mg Tab PO PRN (06:45)
[2019-06-16] MEDS: Multivitamin Tab PO SCH (08:49)
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
[2019-06-17] MEDS: Hydrocodone/APAP 5mg/325mg Tab PO PRN ×2 (05:07→13:07)
[2019-06-17] MEDS: INSULIN LISPRO SLIDING SCALE 100 UNITS/ML UNIT SUBQ SCH ×4 (06:42→20:05)
[2019-06-17] MEDS: Pantoprazole 40 mg EC Tab PO SCH (06:42)
[2019-06-17] MEDS: Multivitamin Tab PO SCH (08:46)
--- NOTE | 2019-06-17 16:23 | Progress Notes ---
DATE: SUBJECTIVE: Chart reviewed and the patient interviewed. Also discussed the patient's condition with the staff and reviewed records and labs. The patient continued to be confused and disoriented. The patient also is restless and he is still easily agitated. The patient also seems to be actively hallucinating and talking to himself. Also has difficulty answering any questions. The patient also gets agitated and irritable during helping him with his ADLs. Otherwise, the patient has continued to comply with taking his medications. OBJECTIVE: The patient has no physical complaints and gait is steady. TREATMENT PLAN: We will continue monitoring his behavior and condition closely. Also, continue Seroquel same dose and we will continue to follow up. [facility]# [id number]
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
--- NOTE | 2019-06-17 22:15 | Progress Notes ---
DATE: 06/17/2019 SUBJECTIVE: Chart reviewed and the patient interviewed. Also discussed the patient's condition with the staff and reviewed records and labs. The patient seems to be irritable and is still confused and easily agitated. The patient also is impulsive and still has unpredictable behavior. The patient also has an angry affect and easily agitated. Also, staff reporting that he has been cursing them and he is still in angry mood and difficulty following directions. ASSESSMENT: The patient is still psychotic and agitated. TREATMENT PLAN: We will increase Seroquel to 37.5 mg 3 times a day and continue Namenda and Aricept same dose. Also, continue to work on behavior modification and on his severe anger and irritability and his poor impulse control. [facility]# [id number]
[2019-06-18] MEDS: Hydrocodone/APAP 5mg/325mg Tab PO PRN ×3 (00:29→17:07)
[2019-06-18] MEDS: INSULIN LISPRO SLIDING SCALE 100 UNITS/ML UNIT SUBQ SCH ×4 (06:42→20:18)
[2019-06-18] MEDS: Pantoprazole 40 mg EC Tab PO SCH (06:45)
[2019-06-18] MEDS: Multivitamin Tab PO SCH (08:53)
--- NOTE | 2019-06-18 19:50 | Progress Notes ---
DATE: 06/18/2019 SUBJECTIVE: Chart reviewed and the patient interviewed. Also discussed the patient's condition with the staff and reviewed records and labs. The patient continued to be confused and impulsive and easily irritable and easily agitated. The patient also still has episodes of aggression. He also focused on smoking and asking staff to go to smoke all the time. The patient also still needs lots of redirections. At the same time, the patient seems to be slightly less irritable with a slight decrease in mood swings since I increased his Seroquel yesterday. ASSESSMENT: The patient is still agitated and is still in irritable mood and needs redirections. TREATMENT PLAN: Continue to monitor behavior and condition closely and continue to work on behavior modification and followup. [facility]# [id number]
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
[2019-06-19] MEDS: INSULIN LISPRO SLIDING SCALE 100 UNITS/ML UNIT SUBQ SCH ×4 (06:35→20:42)
[2019-06-19] MEDS: Pantoprazole 40 mg EC Tab PO SCH (06:51)
[2019-06-19] MEDS: Multivitamin Tab PO SCH (08:42)
[2019-06-19] MEDS: Hydrocodone/APAP 5mg/325mg Tab PO PRN ×2 (14:12→20:41)
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
--- NOTE | 2019-06-20 01:47 | Progress Notes ---
DATE: SUBJECTIVE: Chart reviewed and the patient interviewed. Also discussed the patient's condition with the staff and reviewed records and labs. The patient is still in irritable mood and still anxious. Also confused and he is still impulsive and have unpredictable behavior. The patient also has difficulty following directions and still resisting care. Otherwise, the patient continue to comply with taking his medications and he seems to be slightly calmer since Seroquel was increased to 37.5 mg 3 times a day. ASSESSMENT: The patient is still agitated and aggressive and can be high risk dangerous to others. TREATMENT PLAN: Continue to monitor behavior and condition closely and continue adjusting medications and followup. JOB# [id number]
[2019-06-20] MEDS: Pantoprazole 40 mg EC Tab PO SCH (06:58)
[2019-06-20] MEDS: INSULIN LISPRO SLIDING SCALE 100 UNITS/ML UNIT SUBQ SCH ×4 (06:58→21:08)
[2019-06-20] MEDS: Multivitamin Tab PO SCH (08:24)
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
[2019-06-20] MEDS: Hydrocodone/APAP 5mg/325mg Tab PO PRN ×2 (14:22→22:29)
--- NOTE | 2019-06-20 22:22 | Progress Notes ---
DATE: 06/20/2019 SUBJECTIVE: Chart reviewed and the patient interviewed. Also discussed the patient's condition with the staff and reviewed records and labs. The patient continued to be in irritable and angry mood and is still confused. The patient also is still impulsive and has unpredictable behavior. The patient also still has foul language and cursing the staff. Otherwise, the patient is compliant with taking Seroquel and Namenda with no side effects. ASSESSMENT: The patient is still agitated and psychotic. TREATMENT PLAN: Continue to monitor behavior and condition closely. Also, continue adjusting psychotropic medications and working on behavioral modification. JOB# [id number]
[2019-06-21] MEDS: Hydrocodone/APAP 5mg/325mg Tab PO PRN ×2 (04:49→22:53)
[2019-06-21] MEDS: Pantoprazole 40 mg EC Tab PO SCH (06:32)
[2019-06-21] MEDS: INSULIN LISPRO SLIDING SCALE 100 UNITS/ML UNIT SUBQ SCH ×4 (06:47→20:52)
[2019-06-21] MEDS: Multivitamin Tab PO SCH (08:38)
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
[2019-06-22] MEDS: Hydrocodone/APAP 5mg/325mg Tab PO PRN ×2 (06:33→20:32)
[2019-06-22] MEDS: Pantoprazole 40 mg EC Tab PO SCH (06:37)
[2019-06-22] MEDS: INSULIN LISPRO SLIDING SCALE 100 UNITS/ML UNIT SUBQ SCH ×4 (06:37→20:36)
--- NOTE | 2019-06-22 07:27 | Progress Notes ---
DATE: SUBJECTIVE: Chart reviewed and the patient interviewed. Also discussed the patient's condition with the staff and reviewed records and labs. The patient is asking for more pain medicine. The patient also is still restless and anxious and needs lots of redirections and easily agitated. Also confused and impulsive and has unpredictable behavior. Otherwise, the patient is compliant with taking medications with no side effects of medications. ASSESSMENT: The patient is still agitated and confused, but seems to be less than before. TREATMENT PLAN: Continue monitoring behavior and continue Seroquel and will continue to follow up closely. JOB# [id number]
[2019-06-22] MEDS: Multivitamin Tab PO SCH (08:15)
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
--- NOTE | 2019-06-22 21:23 | Progress Notes ---
DATE: 06/22/2019 SUBJECTIVE: Chart reviewed and the patient interviewed. Also discussed the patient's condition with the staff and reviewed records and labs. The patient is still extremely angry and in irritable mood. The patient also is still suspicious, and is still paranoid. Also, is still angry and is still cursing staff and he is needing lot of redirections. He also gets more aggressive when staff tries to help him with his ADLs. ASSESSMENT: The patient is still agitated and aggressive and can be dangerous to others. TREATMENT PLAN: Continue to monitor behavior and condition closely. Also, continue working on his poor impulse control. Also, placement is questionable and waiting for organization to decide whether the patient will go back to the same facility or different placement. Also, we will increase Seroquel to 50 mg 3 times a day. Hopefully, that will help with his agitation and aggression. JOB# [id number]
[2019-06-23] MEDS: Pantoprazole 40 mg EC Tab PO SCH (06:32)
[2019-06-23] MEDS: INSULIN LISPRO SLIDING SCALE 100 UNITS/ML UNIT SUBQ SCH ×4 (06:33→20:40)
[2019-06-23] MEDS: Multivitamin Tab PO SCH (08:19)
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
[2019-06-23] MEDS: Hydrocodone/APAP 5mg/325mg Tab PO PRN (19:38)
--- NOTE | 2019-06-23 21:47 | Progress Notes ---
DATE: 06/23/2019 SUBJECTIVE: Chart reviewed and the patient interviewed. Also discussed the patient's condition with the staff and reviewed records and labs. The patient continued to be severely irritable and in angry mood. The patient also is still restless and is still uncooperative with treatment. Also, still easily irritable and agitated and have difficulty following directions. Also, still has severe mood swings. Otherwise, the patient is compliant with taking his medications. ASSESSMENT: The patient is still agitated and aggressive. TREATMENT PLAN: I increased Seroquel yesterday to 50 mg 3 times a day, but the patient is still angry and in irritable mood and still needs lots of redirections. Also, questionable if the patient can return to [facility] or placement is an issue. At the same time, we will continue to monitor behavior and we will continue to follow up closely. JOB# [id number]
[2019-06-24] MEDS: INSULIN LISPRO SLIDING SCALE 100 UNITS/ML UNIT SUBQ SCH ×4 (06:43→20:16)
[2019-06-24] MEDS: Pantoprazole 40 mg EC Tab PO SCH (06:44)
[2019-06-24] MEDS: Multivitamin Tab PO SCH (09:09)
[2019-06-24] MEDS: Hydrocodone/APAP 5mg/325mg Tab PO PRN ×2 (09:18→20:16)
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
--- NOTE | 2019-06-24 22:30 | Progress Notes ---
DATE: SUBJECTIVE: Chart reviewed and the patient interviewed. Also discussed the patient's condition with the staff and reviewed records and labs. The patient continued to be in irritable and angry mood. The patient also is suspicious and is paranoid. The patient also still cursing staff and gets angry and agitated easily. The patient also still complaining of hip pain and asking for [place]. Otherwise, the patient is compliant with taking medications with no side effects. ASSESSMENT: The patient is still agitated and in angry and irritable moods. TREATMENT PLAN: Continue to monitor his behavior and his condition closely. Also, continue to work on his anger and irritability. Also, continue Seroquel 50 mg 3 times a day, but will increase Namenda to 5 mg twice a day. Also, continue to work on his irritability and poor impulse control. JOB# [id number]
[2019-06-25] MEDS: Hydrocodone/APAP 5mg/325mg Tab PO PRN ×3 (02:54→21:03)
[2019-06-25] MEDS: INSULIN LISPRO SLIDING SCALE 100 UNITS/ML UNIT SUBQ SCH ×4 (06:36→21:06)
[2019-06-25] MEDS: Pantoprazole 40 mg EC Tab PO SCH (06:37)
[2019-06-25] MEDS: Multivitamin Tab PO SCH (09:05)
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
--- NOTE | 2019-06-26 00:41 | Progress Notes ---
DATE: 06/25/2019 SUBJECTIVE: Chart reviewed and the patient interviewed. Also discussed the patient's condition with the staff and reviewed records and labs. The patient is still angry and in irritable mood. The patient also is still restless and is still having difficulty following staff directions and the patient is resisting care. Also, episodes of yelling and screaming. He also is still having severe mood swings. Otherwise, the patient is compliant with medications with no side effects. ASSESSMENT: The patient is still agitated and aggressive and can be dangerous. TREATMENT PLAN: We will continue monitoring behavior and condition closely and continue adjusting psychotropic medications and followup. [facility]# [id number]
[2019-06-26] MEDS: INSULIN LISPRO SLIDING SCALE 100 UNITS/ML UNIT SUBQ SCH ×4 (06:40→21:21)
[2019-06-26] MEDS: Pantoprazole 40 mg EC Tab PO SCH (06:55)
[2019-06-26] MEDS: Multivitamin Tab PO SCH (08:49)
[2019-06-26] MEDS: Hydrocodone/APAP 5mg/325mg Tab PO PRN ×2 (10:15→17:51)
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
[2019-06-27] MEDS: Pantoprazole 40 mg EC Tab PO SCH (07:00)
[2019-06-27] MEDS: Hydrocodone/APAP 5mg/325mg Tab PO PRN ×3 (07:01→22:55)
[2019-06-27] MEDS: INSULIN LISPRO SLIDING SCALE 100 UNITS/ML UNIT SUBQ SCH ×4 (07:03→21:01)
[2019-06-27] MEDS: Multivitamin Tab PO SCH (08:53)
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
--- NOTE | 2019-06-28 01:29 | Progress Notes ---
DATE: 06/27/2019 SUBJECTIVE: The patient was seen and evaluated. The patient's chart reviewed. Covering for Dr. Underwood. Overnight nursing staff reported he continues to be easily irritable and labile. As early as yesterday, the nursing staff reported the patient continues to be easily agitated and aggressive, fighting with other peers. Today on [id number] evaluation, the patient continues to need redirection for simple conversation, he becomes very irritable, anxious, angry. In the interview, he reported that he needs a clock and unable to give other information besides that he just needs a clock in his room. MENTAL STATUS EXAMINATION: Irritable, agitated, angry resulted into aggressive behavior towards other, unable to formulate a safe plan. PLAN: We will continue monitoring and evaluating as the medications continue to reach steady state, as they were recently increased. JOB# [id number]
[2019-06-28] MEDS: Hydrocodone/APAP 5mg/325mg Tab PO PRN ×3 (06:12→20:16)
[2019-06-28] MEDS: INSULIN LISPRO SLIDING SCALE 100 UNITS/ML UNIT SUBQ SCH ×4 (06:51→20:16)
[2019-06-28] MEDS: Pantoprazole 40 mg EC Tab PO SCH (06:58)
[2019-06-28] MEDS: Multivitamin Tab PO SCH (09:06)
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
--- NOTE | 2019-06-28 21:27 | Progress Notes ---
DATE: 06/28/2019 SUBJECTIVE: The patient was seen and evaluated. The patient's chart reviewed. Overnight, the patient continues to present very irritable, easily agitated, and angry. Covering for Dr. Underwood. Today on [id number] evaluation, the patient continues to present as very disorganized and focused about a o'clock and that he needs that clock. When attempted to discuss with him the importance about taking medication, he becomes verbally irritable and aggressive. MENTAL STATUS EXAMINATION: Verbally aggressive and disorganized. ASSESSMENT AND PLAN: Aggressive with a history of dementia with behavior disturbances and psychosis, unable to formulate a safe plan. We will continue with the current medications to continue to reach steady state and continue primary psychiatrist's treatment plan and goals. [facility]# [id number]
[2019-06-29] MEDS: Hydrocodone/APAP 5mg/325mg Tab PO PRN ×2 (02:57→09:23)
[2019-06-29] MEDS: Pantoprazole 40 mg EC Tab PO SCH (07:00)
[2019-06-29] MEDS: INSULIN LISPRO SLIDING SCALE 100 UNITS/ML UNIT SUBQ SCH ×4 (07:00→20:50)
[2019-06-29] MEDS: Multivitamin Tab PO SCH (09:22)
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
--- NOTE | 2019-06-29 20:31 | Progress Notes ---
DATE: 06/29/2019 SUBJECTIVE: Chart reviewed and the patient interviewed. Also discussed the patient's condition with the staff, records and labs. The patient continued to be confused and forgetful. The patient also is still having difficulty following directions and is still argumentative, although it seems to be less than before and seems to be more cooperative. The patient also is still interacting minimally with others and not engaged with the staff or peers. He also still has episodes of irritability and agitation, but seems to be less than before. Otherwise, the patient is compliant with taking his medications. ASSESSMENT: The patient is still agitated and confused, but showing some improvement. TREATMENT PLAN: Continue Seroquel 50 mg 3 times a day and Aricept 10 mg at bedtime and Namenda 5 mg twice a day. Also, continue working on his irritability and his agitation as well as behavioral modification. JOB# [id number]
[2019-06-30] MEDS: Hydrocodone/APAP 5mg/325mg Tab PO PRN ×3 (04:00→23:36)
[2019-06-30] MEDS: INSULIN LISPRO SLIDING SCALE 100 UNITS/ML UNIT SUBQ SCH ×4 (06:46→21:03)
[2019-06-30] MEDS: Pantoprazole 40 mg EC Tab PO SCH (06:46)
[2019-06-30] MEDS: Multivitamin Tab PO SCH (08:57)
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
--- NOTE | 2019-06-30 11:08 | Progress Notes ---
DATE: 06/30/2019 PSYCHIATRIC PROGRESS NOTE Chart reviewed and the patient interviewed. Also, I discussed the patient's condition with the staff and reviewed records and labs. SUBJECTIVE: The patient is still easily agitated and is still in irritable and angry mood. The patient also is still restless and did not sleep last night except 2 hours according to the staff. Also, he is still confused and is unable to carry on coherent conversation. The patient also is restless and he is aggressive with the staff. ASSESSMENT: The patient is still agitated and still has poor impulse control. TREATMENT PLAN: We will continue to monitor his behavior and his condition closely. Also yesterday, I discussed with manager of case if the patient can return to previous facility, but I do not have any answer me back yet. Also, we will increase Seroquel to 50 mg twice a day and to 100 mg at bedtime. Hopefully, that can help the patient sleep better at night. Also, continue to work on his poor impulse control. Also, working on discharge plans if placement is needed. JOB# [id number]
[2019-07-01] MEDS: INSULIN LISPRO SLIDING SCALE 100 UNITS/ML UNIT SUBQ SCH ×4 (06:58→20:25)
[2019-07-01] MEDS: Pantoprazole 40 mg EC Tab PO SCH (06:59)
[2019-07-01] MEDS: Multivitamin Tab PO SCH (08:55)
[2019-07-01] MEDS: Hydrocodone/APAP 5mg/325mg Tab PO PRN ×2 (12:37→21:43)
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
[2019-07-02] MEDS: Pantoprazole 40 mg EC Tab PO SCH (06:37)
[2019-07-02] MEDS: INSULIN LISPRO SLIDING SCALE 100 UNITS/ML UNIT SUBQ SCH ×2 (06:37→11:30)
[2019-07-02] MEDS: Hydrocodone/APAP 5mg/325mg Tab PO PRN (06:38)
[2019-07-02] MEDS: Multivitamin Tab PO SCH (09:04)
--- NOTE | 2019-07-02 22:37 | Progress Notes ---
DATE: 07/02/2019 SUBJECTIVE: The patient was supposed to be discharged yesterday, but he did not leave because the facility did not accept him back. I tried to relay this message to the caser up, but they insisted that he was accepted back again; problem was communication there. The patient is still anxious, but he is calmer and no major behavioral problems and at the same time, no place to take him at this moment. We will continue monitoring his behavior and continue working on discharge plans and also on placement issue at this time. JOB# [id number]
--- NOTE | 2019-07-02 22:39 | Progress Notes ---
DATE: 07/01/2019 SUBJECTIVE: The patient is supposed to be discharged today to the skilled nursing in [facility], but questionable if they are going to take him. We will have a discharge order and according to social services technician, the patient can go back there and will followup. JOB# [id number]
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
== END 2019-07-02 14:35 | DRG 885 ==
LOC: GERO 22:00
PROVIDERS: ADMIT Psychiatry & Neurology Psychiatry; ATTEND Psychiatry & Neurology Psychiatry
DX: F29 Unspecified psychosis not due to a substance or known physiological condition (principal); F03.91 Unspecified dementia, unspecified severity, with behavioral disturbance; N39.0 Urinary tract infection, site not specified; N40.0 Benign prostatic hyperplasia without lower urinary tract symptoms; G40.909 Epilepsy, unspecified, not intractable, without status epilepticus; K21.9 Gastro-esophageal reflux disease without esophagitis; M19.90 Unspecified osteoarthritis, unspecified site; E11.9 Type 2 diabetes mellitus without complications; D64.9 Anemia, unspecified; M16.0 Bilateral primary osteoarthritis of hip; R06.03 Acute respiratory distress
CPT/HCPCS: 82948-90; 83036-90; Z7610